=== PATIENT | female | born 1970 | race African-American/Black ===

== ENCOUNTER 2022-12-14 15:57 | Emergency (ER) | payer OTHER ==
--- OUTSIDE RECORDS SUMMARY | 2022-12-14 16:03 | XMS REPORT | Continuity of Care Document ---
:1970 [facility] [address] [facility] [address] [place] [place] [address] Care Team Providers Name Role Phone Samantha Beasley Primary Care Physician [phone] Javon Bundy MD, Luis D Attending Clinician [phone] EDITH Attending Clinician Unavailable DR ROMANA HARRIS Attending Clinician Unavailable EDITH Admitting Clinician Unavailable DR ROMANA HARRIS Admitting Clinician Unavailable Payers Payer Name Policy Type Policy Number Effective Date [facility]piration Date [facility] [id number] 2017 COMMUNITY PLAN - 00:00:00 [facility] (MEDICAID HMO) Problems This patient has no known problems. Allergies, Adverse Reactions, Alerts This patient has no known allergies or adverse reactions. Social History Social Habit Start Date Stop Date Quantity Comments Source Gender identity [facility] Sexual orientation [facility] Exposure to SARS-CoV-2 2021-12-29 2022-01-08 Not sure [facility] (event) 00:00:00 18:35:00 Sex Assigned At [birth year] [facility] 00:00:00 00:00:00 Medications Ordered Filled Start Stop Current Ordering Indication Dosage Frequency Signature Comments Components Source Medication Medication Date Date Medication? Clinician (SIG) Name Name BENZTROPINE No MESYLATE 1 9-26 MG TABS 00:00: 00 TAKE ONE No (1) TABLET 8-29 BY MOUTH 00:00: EVERY 00 EVENING BENZTROPINE No 1 MESYLATE 1 8-17 MG TABS 00:00: 00 DIVALPROEX No 500 SODIUM ER 8-17 500 MG TB24 00:00: 00 WATER FOR 2021- No 1 dose, Kait is INJECTION, 01-09 Starting Heal th STERILE 00:44: 03:38 on Mon INJECTION 28 :03 01/09/22 at SOLUTION 0044 Pyxis Override cefTRIAXone 2021- No 500mg 500 mg [facility] (ROCEPHIN) 01-09 (8.01 Health injection 00:34: 01:10 mg/kg), 500 mg 00 :00 Intramuscu lar, ONCE, 1 dose, On Sun01/09/22 at 0034, STAT doxycycline 2021- No [id number] 100mg Q.5D Take 1 [facility] monohydrate 01-09 capsule by [facility] (MONODOX) 00:00: 23:59 mouth 2 100 mg 00 :00 times capsule daily for 10 days metroNIDAZO 2021- No [id number] 500mg Q.5D Take 1 [facility] (FLAGYL) 01-09 tablet by He alth 500 mg 00:00: 23:59 mouth 2 tablet 00 :00 times daily for 10 days doxycycline 2021- No Dysuria 100mg Q.5D Take 1 [facility] monohydrate 01-09 capsule by [facility] (MONODOX) 00:00: 23:59 mouth 2 100 mg 00 :00 times capsule daily for 10 days metroNIDAZO 2021- No Dysuria 500mg Q.5D Take 1 [facility] (FLAGYL) 01-09 tablet by [facility] 500 mg 00:00: 23:59 mouth 2 tablet 00 :00 times daily for 10 days doxycycline 2021- No Dysuria 100mg Q.5D Take 1 [facility] monohydrate 01-09 capsule [facility] (MONODOX) 00:00: 23:59 mouth 2 100 mg 00 :00 times capsule daily for 10 days metroNIDAZO 2021- No Dysuria 500mg Q.5D Take 1 [facility] (FLAGYL) 6-13 06-23 tablet by [facility] 500 mg 00:00: 23:59 mouth 2 tablet 00 :00 times daily for 10 days doxycycline 2021- No Dysuria 100mg Q.5D Take 1 [facility] monohydrate 01-09 capsule by [facility] (MONODOX) 00:00: 23:59 mouth 2 100 mg 00 :00 times capsule daily for 10 days metroNIDAZO 2021- No Dysuria 500mg Q.5D Take 1 [facility] (FLAGYL) 01-09 tablet by [facility] 500 mg 00:00: 23:59 mouth 2 tablet 00 :00 times daily for 10 days doxycycline 2021- No Dysuria 100mg Q.5D Take 1 [facility] monohydrate 01-09 capsule by [facility] (MONODOX) 00:00: 23:59 mouth 2 100 mg 00 :00 times capsule daily for 10 days metroNIDAZO 2021- No Dysuria 500mg Q.5D Take 1 [facility] (FLAGYL) 01-09 tablet by [facility] 500 mg 00:00: 23:59 mouth 2 tablet 00 :00 times daily for 10 days Vital Signs Vital Name Observation Time Observation Value Comments Source Systolic blood pressure 2022-01-09 01:20:00 100 mm[Hg] [facility] Diastolic blood pressure 2022-01-09 01:20:00 59 mm[Hg] [facility] Heart rate 2022-01-09 01:20:00 84 /min [facility] Body temperature 2022-01-09 01:20:00 36.67 Ameena Kait is [facility] Respiratory rate 2022-01-09 01:20:00 18 /min Kait is [facility] Oxygen saturation in 2022-01-09 01:20:00 97 /min [facility] Arterial blood by Pulse oximetry BMI 2022-01-08 18:31:00 21.54 kg/m2 [facility] Body height 2022-01-08 18:31:00 170.2 cm [facility] Body weight 2022-01-08 18:31:00 62.37 kg [facility] Systolic blood pressure 2022-01-09 01:20:00 100 mm[Hg] [facility] Diastolic blood pressure 2022-01-09 01:20:00 59 mm[Hg] [facility] Heart rate 2022-01-09 01:20:00 84 /min [facility] Body temperature 2022-01-09 01:20:00 36.67 Ameena [facility] Respiratory rate 2022-01-09 01:20:00 18 /min [facility] Oxygen saturation in 2022-01-09 01:20:00 97 /min [facility] Arterial blood by Pulse oximetry BMI 2022-01-08 18:31:00 21.54 kg/m2 [facility] Body height 2022-01-08 18:31:00 170.2 cm [facility] Body weight 2022-01-08 18:31:00 62.37 kg [facility] Systolic blood pressure 2022-01-09 01:20:00 100 mm[Hg] [facility] Diastolic blood pressure 2022-01-09 01:20:00 59 mm[Hg] [facility] Heart rate 2022-01-09 01:20:00 84 /min [facility] Body temperature 2022-01-09 01:20:00 36.67 Ameena [facility] Respiratory rate 2022-01-09 01:20:00 18 /min [facility] Oxygen saturation in 2022-01-09 01:20:00 97 /min [facility] Arterial blood by Pulse oximetry BMI 2022-01-08 18:31:00 21.54 kg/m2 [facility] Body height 2022-01-08 18:31:00 170.2 cm [facility] Body weight 2022-01-08 18:31:00 62.37 kg [facility] BP Systolic 2022-03-08 15:27:00 102 mm[Hg] BP Diastolic 2022-03-08 15:27:00 64 mm[Hg] Weight Measured 2022-03-08 15:27:00 154.00 pounds Height Measured 2022-03-08 15:27:00 68.00 inches Body Temperature 2022-03-08 15:27:00 97.40 degrees Heart Rate 2022-03-08 15:27:00 90.00 /min Respiratory Rate 2022-03-08 15:27:00 Systolic blood pressure 2022-01-09 01:20:00 100 mm[Hg] [facility] Diastolic blood pressure 2022-01-09 01:20:00 59 mm[Hg] [facility] Heart rate 2022-01-09 01:20:00 84 /min [facility] Body temperature 2022-01-09 01:20:00 36.67 Ameena [facility] Respiratory rate 2022-01-09 01:20:00 18 /min [facility] Oxygen saturation in 2022-01-09 01:20:00 97 /min [facility] Arterial blood by Pulse oximetry Body height 2022-01-08 18:31:00 170.2 cm [facility] Body weight 2022-01-08 18:31:00 62.37 kg [facility] BMI 2022-01-08 18:31:00 21.54 kg/m2 [facility] Procedures Procedure Date / Time Performed Performing Clinician Sour e URINALYSIS 2022-01-08 19:31:00 [facility] 2022-01-08 19:31:00 [facility] 2022-01-08 19:31:00 [facility] 2022-01-08 19:31:00 Chrissie Escobedo [facility] h CBC 2022-01-08 19:30:00 Chrissie Escobedo [facility] BASIC METABOLIC PANEL 2022-01-08 19:30:00 Chrissie Escobedo [facility] CBC/DIFF 2022-01-08 19:30:00 Chrissie Escobedo [facility] h HIV AG/AB COMBO 2022-01-08 19:30:00 Chrissie Escobedo [facility] h DIAGNOSTIC/SYMPTOMATIC LIPASE 2022-01-08 19:30:00 Chrissie Escobedo [facility] h LIVER PROFILE 2022-01-08 19:30:00 [facility] 2022-01-08 19:30:00 Chrissie Escobedo [facility] h CBC/DIFF 2022-01-08 19:30:00 [facility] BASIC METABOLIC PANEL 2022-01-08 19:30:00 Chrissie Escobedo [facility] HIV AG/AB COMBO 2022-01-08 19:30:00 [facility] DI[facility]NOSTIC/SYMPTOMATIC LIPASE 2022-01-08 19:30:00 [facility] L[facility] 2022-01-08 19:30:00 Chrissie Escobedo [facility] Plan of Care Planned Activity Planned Date Details Comments Source Future Scheduled Test 2022-04-29 00:00:00 IMM Influenza [facility] Seasonal (>/= 19 yrs) [code = IMM Influenza Seasonal (>/= 19 yrs)] Future Scheduled Test 2022-04-29 00:00:00 IMM Influenza [facility] Seasonal (>/= 19 yrs) [code = IMM Influenza Seasonal (>/= 19 yrs)] Future Scheduled Test 2022-04-29 00:00:00 IMM Influenza [facility] Seasonal (>/= 19 yrs) [code = IMM Influenza Seasonal (>/= 19 yrs)] Future Scheduled Test 2022-04-29 00:00:00 IMM Influenza [facility] Seasonal (>/= 19 yrs) [code = IMM Influenza Seasonal (>/= 19 yrs)] Future Scheduled Test 2020 00:00:00 Screening for [facility] malignant neoplasm of colon (procedure) [code = 971557671] Future Scheduled Test 2020 00:00:00 Screening for [facility] malignant neoplasm of colon (procedure) [code = 499263160] Future Scheduled Test 2020 00:00:00 Screening for [facility] malignant neoplasm of colon (procedure) [code = 884793497] Future Scheduled Test 2020 00:00:00 Screening for [facility] malignant neoplasm of colon (procedure) [code = 245099772] Future Scheduled Test 2010 00:00:00 Breast Cancer Scrn [facility] (Yearly) [code = Breast Cancer Scrn (Yearly)] Future Scheduled Test 2010 00:00:00 Breast Cancer Scrn [facility] (Yearly) [code = Breast Cancer Scrn (Yearly)] Future Scheduled Test 2010 00:00:00 Breast Cancer Scrn [facility] (Yearly) [code = Breast Cancer Scrn (Yearly)] Future Scheduled Test 2010 00:00:00 Breast Cancer Scrn [facility] (Yearly) [code = Breast Cancer Scrn (Yearly)] Future Scheduled Test 2000 00:00:00 Screening for [facility] malignant neoplasm of cervix (procedure) [code = 754467742] Future Scheduled Test 2000 00:00:00 Screening for [facility] malignant neoplasm of cervix (procedure) [code = 677611802] Future Scheduled Test 2000 00:00:00 Screening for [facility] malignant neoplasm of cervix (procedure) [code = 033544119] Future Scheduled Test 2000 00:00:00 Screening for [facility] malignant neoplasm of cervix (procedure) [code = 567531367] Future Scheduled Test 2000 00:00:00 Screening for [facility] malignant neoplasm of cervix (procedure) [code = 180386040] Future Scheduled Test 2000 00:00:00 Screening for [facility] malignant neoplasm of cervix (procedure) [code = 517770362] Future Scheduled Test 2000 00:00:00 Screening for [facility] malignant neoplasm of cervix (procedure) [code = 926455620] Future Scheduled Test 2000 00:00:00 Screening for [facility] malignant neoplasm of cervix (procedure) [code = 496952069] Future Scheduled Test 1971-06-22 00:00:00 COVID-19 Vaccine (#1) [facility] [code = COVID-19 Vaccine (#1)] Future Scheduled Test 1971-06-22 00:00:00 COVID-19 Vaccine (#1) [facility] [code = COVID-19 Vaccine (#1)] Future Scheduled Test 1971-06-22 00:00:00 COVID-19 Vaccine (#1) [facility] [code = COVID-19 Vaccine (#1)] Future Scheduled Test 1971-06-22 00:00:00 COVID-19 Vaccine (#1) [facility] [code = COVID-19 Vaccine (#1)] Future Scheduled Test 1970 00:00:00 Fluoride Varnish [facility] [code = Fluoride Varnish] Goal Plan of Care Note [code = 08885-6] Goal Plan of Care Note [code = 28035-1] Goal Plan of Care Note [code = 09897-6] Goal Plan of Care Note [code = 52758-3] Goal Plan of Care Note [code = 15778-5] Goal Plan of Care Note [code = 71436-0] Goal Plan of Care Note [code = 66735-7] Goal Plan of Care Note [code = 46882-9] Goal Plan of Care Note [code = 92777-4] Goal Plan of Care Note [code = 58083-4] Goal Plan of Care Note [code = 63292-3] Goal Plan of Care Note [code = 06168-3] Encounters Start End Encounter Admission Attending Care Care Encounter Source Date/Time Date/Time Type Type Clinicians Facility Department ID 2022-06-27 Outpatient [facility] [id number] [place] 12:00:38 [facility] idalia [address] [place] 2022-06-16 Inpatient TEXANA TEXANA [place] 10:25:[id number] [place] [address] 2022-03-15 Inpatient TEXANA TEXANA [place] 07:49:[id number] [place] [address] 2022-02-03 Inpatient TEXANA TEXANA [place] 12:09:[id number] [place] [address] 2022-02-01 Inpatient TEXANA TEXANA [place] 16:28:[address] [place] [address] 2022-01-31 Inpatient TEXANA TEXANA [place] 16:35:[address] [place] [address] 2022-01-25 Inpatient TEXANA TEXANA [place] 09:34:[id number] [place] [address] 2022-01-24 Inpatient TEXANA TEXANA [place] 17:21:[id number] [place] [address] 2022-08-31 2022-08-31 Outpatient SFA SFA [id number] [place] 14:15:54 14:15:54 [id number] [facility] 2022-08-08 2022-08-08 Outpatient SFA SFA [id number] [place] 13:33:27 13:33:27 [address]24 [facility] 2022-08-01 2022-08-01 Outpatient SFA SFA [id number] [place] 14:00:22 14:00:22 [id number] [facility] 2022-07-12 2022-07-12 Outpatient SFA SFA [id number] [place] 14:28:01 14:28:01 [id number] [facility] 2022-05-22 2022-05-22 Outpatient SFA SFA [id number] [place] 14:17:41 14:17:41 [address] [facility] 2022-03-20 2022-03-20 Outpatient [id number] 00:00:00 00:00:00 Visit [id number] 2022-03-08 2022-03-08 Outpatient [id number] 00:00:00 00:00:00 Visit [id number] 2022-01-08 2022-01-09 Emergency OLESYA Alejandro [id number] [place] 22:31:00 01:30:[address] [facility] [id number] [id number] [id number] 2022-01-09 Emergency Javon [facility] [id number] [place] 22:31:00 01:30:00 Luis Randhawa [facility] 2022-01-08 2022-01-08 Emergency 1 [facility] [id number] [place] 18:31:00 18:31:00 [facility] 2021-07-06 2021-07-06 Outpatient [facility] [address] [place] 04:35:00 04:35:00 _ANN [facility] 2018-03-04 2018-03-04 Emergency E [facility] [id number] 238 [facility] 19:43:00 21:10:00 [facility] Results Test Description Test Time Test Comments Results Result Comments Source CT/NG, NAAT, URINE 2022-03-10 10:01:57 Test Item Value Reference Range Interpretation Comme nts GONORRHEA, NAAT NEGATIVE NEGATIVE IMPORTA NT NOTICE: SEE ANNOUNCEMENT AT (test code = [email or web address].[employer] ([place])rineKit Note: 96329) Assay methodolo gy is nucleic acid amplification by transcriptio n mediated amplification (TMA) utilizing the A ptima Combo 2 Assay. CHLAMYDIA, NAAT NEGATIVE NEGATIVE IMPORTA NT NOTICE: SEE ANNOUNCEMENT AT (test code = [email or web address]://www.[employer]/RocheCobasUrineKit Note: 74395) Assay methodolo gy is nucleic acid amplification by transcriptio n mediated amplification (TMA) utilizing the A ptima Combo 2 Assay. GC AND CHLAMYDIA, AMPLIFIED, [id number] 00:00:00 Test Item Value Reference Range Interpretation Comments GONORRHEA, NAAT (test code = 90064) NEGATIVE CHLAMYDIA, NAAT (test code = 42227) NEGATIVE GC AND CHLAMYDIA, AMPLIFIED, [id number] 00:00:00 Test Item Value Reference Range Interpretation Comments GONORRHEA, NAAT (test code = 80543) NEGATIVE CHLAMYDIA, NAAT (test code = 94372) NEGATIVE HEMOGLOBIN [id number] 07:55:22 Test Item Value Reference Range Interpretation Comments HEMOGLOBIN A1c (test code = 32562) 5.2 % 4.2-5.6 CBC W/AUTO DIFF WITH [id number] 06:43:03 Test Item Value Reference Range Interpretation Comments WBC (test code = 5.4 K/UL 3.5-11.0 1001) RBC (test code = 4.02 M/UL 3.80-5.40 1002) HEMOGLOBIN (test code 11.1 G/DL 11.5-15.5 L = 1003) HEMATOCRIT (test code 34.9 % 34.0-45.0 = 1004) MCV (test code = 86.8 fL 80.0-99.0 1005) MCH (test code = 27.6 PG 25.0-33.0 1006) MCHC (test code = 31.8 G/DL 31.0-36.0 1007) RDW (test code = 14.5 % 11.5-15.0 1038) NEUTROPHILS (test 50.2 % code = 1008) LYMPHOCYTES (test 35.1 % code = 1010) MONOCYTES (test code 7.1 % = 1011) EOSINOPHILS (test 6.7 % code = 1012) BASOPHILS (test code 0.7 % = 1013) IMMATURE GRANULOCYTES 0.2 % (test code = 1036) NUCLEATED RBCS (test 0.0 /100 WBC'S See_Comment [Aut omated code = 1065) message] The sy stem which generated this result transmitted reference range : 0.0. The refere nce range was not u sed to interpret th is result as normal/abnormal . PLATELET COUNT (test 228 K/UL 130-400 code = 1015) ABSOLUTE NEUTROPHILS 2.68 K/UL 1.50-7.50 (test code = 1066) ABSOLUTE LYMPHOCYTES 1.88 K/UL 1.00-4.00 (test code = 1067) ABSOLUTE MONOCYTES 0.38 K/UL 0.20-1.00 (test code = 1068) ABSOLUTE EOSINOPHILS 0.36 K/UL 0.00-0.50 (test code = 1040) ABSOLUTE BASOPHILS 0.04 K/UL 0.00-0.20 (test code = 1069) ABS IMMATURE 0.01 K/UL 0.00-0.10 GRANULOCYTES (test code = 1020) ABS NUCLEATED RBCS 0.00 K/UL 0.00-0.11 (test code = 01278) HIV 1/2 4TH GEN, RFLX [id number] 06:37:05 Test Item Value Reference Range Interpretation Comments HIV 1/2 4TH GEN, RFLX CONF (test NON-REACTIVE NON-REACTIVE code = 3514) HEPATITIS PANEL, [id number] 06:37:05 Test Item Value Reference Range Interpretation Comments HEPATITIS A IgM (test NON-REACTIVE NON-REACTIVE code = 12241) HEPATITIS B CORE IgM NON-REACTIVE NON-REACTIVE (test code = 4644) HEPATITIS B SURF AG NON-REACTIVE NON-REACTIVE (test code = 2739) HEPATITIS C ANTIBODY NON-REACTIVE NON-REACTIVE (test code = 4675) INTERPRETATION (NOTE) Hepatitis A HEPATITIS A: (test code sero logy shows no = 2552) evidence of acu te hepatitis A. INTERPRETATION (NOTE) Hepatitis B HEPATITIS B: (test code sero logy shows no = 01400) evidence of acu te hepatitis B and no indication of exposure to hepatitis B vir us in the previous cande eight months. INTERPRETATION (NOTE) Hepatitis C HEPATITIS C: (test code sero logy shows no = 76509) evidence of exposure to hepatitisC viru s at this time. I t can take up to 12 months after exposure tothe hepatitis C vir us for antibodies to become detectab le in the blood i n certain patient s. COMPREHENSIVE METABOLIC [id number] 06:24:00 Test Item Value Reference Range Interpretation Comments GLUCOSE (test code = 101 MG/DL 70-99 H 2216) BUN (test code = 22 MG/DL 6-20 H 2207) CREATININE (test 0.85 MG/DL 0.60-1.30 code = 2214) eGFR (2020 CKD-EPI) 83 ML/MIN/1.73 >60 (test code = 83255) CALC BUN/CREAT (test 26 RATIO 6-28 code = 223) SODIUM (test code = 138 MEQ/L 080-954 5945) POTASSIUM (test code 4.7 MEQ/L 3.5-5.4 = 2227) CHLORIDE (test code 104 MEQ/L 95-107 = 2214) CARBON DIOXIDE (test 20 MEQ/L 19-31 code = 2205) CALCIUM (test code = 11.5 MG/DL 8.5-10.5 H 2208) PROTEIN, TOTAL (test 7.4 G/DL 6.1-8.3 code = 2228) ALBUMIN (test code = 4.3 G/DL 3.5-5.2 2200) CALC GLOBULIN (test 3.1 G/DL 1.9-3.7 code = 2239) CALC A/G RATIO (test 1.4 RATIO 1.0-2.6 code = 2233) BILIRUBIN, TOTAL <0.2 MG/DL See_Comment [Automated message] (test code = 2206) The syste m which generated this result transmit zachariah reference range : <=1.2. The refe rence range was not u sed to interpret th is result as normal/abnormal . ALKALINE PHOSPHATASE 43 U/L 40-130 (test code = 2203) AST (test code = 13 U/L 9-40 2217) ALT (test code = 6 U/L 5-40 2218) LIPID [id number] 06:24:00 Test Item Value Reference Range Interpretation Comments CHOLESTEROL (test 187 MG/DL <200 code = 2210) TRIGLYCERIDES (test 109 MG/DL <150 code = 2232) HDL CHOLESTEROL (test 78 MG/DL >39 code = 2220) CALC LDL CHOL (test 88 MG/DL <100 NOTE: C ALCULATED LDL code = 2237) IS BASED ON AMBREEN-DUKES METHOD WHICHINCLUDES ADJUSTABLE TRIGLYCERIDE:VL DL CHOLESTEROL RAT IO.THIS FACTOR VARIES B Y MEASURED TRIGLY CERIDE AND NON-HDLCHOL ESTEROL CONCENTRATIONS WITH INCREASED CALCU LATED LDL SEENIN HIGH ER TRIGLYCERIDE OR LOWER NON-HDL SPECIME NS. FOR MOREINFORMATION , SEE CLIENT ANNOUNCE MENT AT [email or web address] [email or web address] RATIO LDL/HDL 1.13 RATIO <3.22 (test code = 2238) [id number] 04:53:39 Test Item Value Reference Range Interpretation Comments RPR RESULT (test NON-REACTIVE NON-REACTIVE code = 3501) RPR TITER (test NOT INDIC. NOT INDIC. UNLESS OTHE RWISE code = 3500) TITER INDICATED, ALL TESTING PERFORMED [facility] PATHOLOGY [facility] [employer], [facility]. [address] [place] [address] [address] LABORATORY DIRE CTOR: MORENA LAL M.D. CLIA NUMBER [id number] [place] [id number] COMPREHENSIVE METABOLIC [id number] 00:00:00 Test Item Value Reference Range Interpretation Comments GLUCOSE (test code = 2217) 101 MG/DL BUN (test code = 2208) 22 MG/DL CREATININE (test code = 2214) 0.85 MG/DL eGFR (2020 CKD-EPI) (test code 83 ML/MIN/1.73 = 81646) CALC BUN/CREAT (test code = 26 RATIO 2234) SODIUM (test code = 2231) 138 MEQ/L POTASSIUM (test code = 2228) 4.7 MEQ/L CHLORIDE (test code = 2215) 104 MEQ/L CARBON DIOXIDE (test code = 20 MEQ/L 2205) CALCIUM (test code = 2209) 11.5 MG/DL PROTEIN, TOTAL (test code = 7.4 G/DL 2228) ALBUMIN (test code = 2201) 4.3 G/DL CALC GLOBULIN (test code = 3.1 G/DL 2240) CALC A/G RATIO (test code = 1.4 RATIO 4) BILIRUBIN, TOTAL (test code = <0.2 MG/DL 2206) ALKALINE PHOSPHATASE (test 43 U/L code = 2204) AST (test code = 2218) 13 U/L ALT (test code = 2219) 6 U/L COMPREHENSIVE METABOLIC [id number] 00:00:00 Test Item Value Reference Range Interpretation Comments GLUCOSE (test code = 2217) 101 MG/DL BUN (test code = 2208) 22 MG/DL CREATININE (test code = 2214) 0.85 MG/DL eGFR (2020 CKD-EPI) (test code 83 ML/MIN/1.73 = 15851) CALC BUN/CREAT (test code = 26 RATIO 2235) SODIUM (test code = 2231) 138 MEQ/L POTASSIUM (test code = 2228) 4.7 MEQ/L CHLORIDE (test code = 2215) 104 MEQ/L CARBON DIOXIDE (test code = 20 MEQ/L 2205) CALCIUM (test code = 2209) 11.5 MG/DL PROTEIN, TOTAL (test code = 7.4 G/DL 2228) ALBUMIN (test code = 2201) 4.3 G/DL CALC GLOBULIN (test code = 3.1 G/DL 2239) CALC A/G RATIO (test code = 1.4 RATIO 2234) BILIRUBIN, TOTAL (test code = <0.2 MG/DL 2206) ALKALINE PHOSPHATASE (test 43 U/L code = 2204) AST (test code = 2218) 13 U/L ALT (test code = 2219) 6 U/L LIPID [id number] 00:00:00 Test Item Value Reference Range Interpretation Comments CHOLESTEROL (test code = 2210) 187 MG/DL TRIGLYCERIDES (test code = 2232) 109 MG/DL HDL CHOLESTEROL (test code = 2220) 78 MG/DL CALC LDL CHOL (test code = 2237) 88 MG/DL RISK RATIO LDL/HDL (test code = 1.13 RATIO 2238) LIPID [id number] 00:00:00 Test Item Value Reference Range Interpretation Comments CHOLESTEROL (test code = 2210) 187 MG/DL TRIGLYCERIDES (test code = 2232) 109 MG/DL HDL CHOLESTEROL (test code = 2220) 78 MG/DL CALC LDL CHOL (test code = 2237) 88 MG/DL RISK RATIO LDL/HDL (test code = 1.13 RATIO 2238) HEMOGLOBIN [id number] 00:00:00 Test Item Value Reference Range Interpretation Comments HEMOGLOBIN A1c (test code = 62292) 5.2 % HEMOGLOBIN [id number] 00:00:00 Test Item Value Reference Range Interpretation Comments HEMOGLOBIN A1c (test code = 13009) 5.2 % HEMOGLOBIN [id number] 00:00:00 Test Item Value Reference Range Interpretation Comments HEMOGLOBIN A1c (test code = 58780) 5.2 % CBC W/AUTO [id number] 00:00:00 Test Item Value Reference Range Interpretation Comments WBC (test code = 1001) 5.4 K/UL RBC (test code = 1002) 4.02 M/UL HEMOGLOBIN (test code = 1003) 11.1 G/DL HEMATOCRIT (test code = 1004) 34.9 % MCV (test code = 1005) 86.8 fL MCH (test code = 1006) 27.6 PG MCHC (test code = 1007) 31.8 G/DL RDW (test code = 1038) 14.5 % NEUTROPHILS (test code = 1008) 50.2 % LYMPHOCYTES (test code = 1010) 35.1 % MONOCYTES (test code = 1011) 7.1 % EOSINOPHILS (test code = 1012) 6.7 % BASOPHILS (test code = 1013) 0.7 % IMMATURE GRANULOCYTES (test 0.2 % code = 1036) NUCLEATED RBCS (test code = 0.0 /100WBC'S 1065) PLATELET COUNT (test code = 228 K/UL 1015) ABSOLUTE NEUTROPHILS (test code 2.68 K/UL = 1066) ABSOLUTE LYMPHOCYTES (test code 1.88 K/UL = 1067) ABSOLUTE MONOCYTES (test code = 0.38 K/UL 1068) ABSOLUTE EOSINOPHILS (test code 0.36 K/UL = 1040) ABSOLUTE BASOPHILS (test code = 0.04 K/UL 1069) ABS IMMATURE GRANULOCYTES (test 0.01 K/UL code = 1020) ABS NUCLEATED RBCS (test code = 0.00 K/UL 13996) CBC W/AUTO [id number] 00:00:00 Test Item Value Reference Range Interpretation Comments WBC (test code = 1001) 5.4 K/UL RBC (test code = 1002) 4.02 M/UL HEMOGLOBIN (test code = 1003) 11.1 G/DL HEMATOCRIT (test code = 1004) 34.9 % MCV (test code = 1005) 86.8 fL MCH (test code = 1006) 27.6 PG MCHC (test code = 1007) 31.8 G/DL RDW (test code = 1038) 14.5 % NEUTROPHILS (test code = 1008) 50.2 % LYMPHOCYTES (test code = 1010) 35.1 % MONOCYTES (test code = 1011) 7.1 % EOSINOPHILS (test code = 1012) 6.7 % BASOPHILS (test code = 1013) 0.7 % IMMATURE GRANULOCYTES (test 0.2 % code = 1036) NUCLEATED RBCS (test code = 0.0 /100WBC'S 1065) PLATELET COUNT (test code = 228 K/UL 1015) ABSOLUTE NEUTROPHILS (test code 2.68 K/UL = 1066) ABSOLUTE LYMPHOCYTES (test code 1.88 K/UL = 1067) ABSOLUTE MONOCYTES (test code = 0.38 K/UL 1068) ABSOLUTE EOSINOPHILS (test code 0.36 K/UL = 1040) ABSOLUTE BASOPHILS (test code = 0.04 K/UL 1069) ABS IMMATURE GRANULOCYTES (test 0.01 K/UL code = 1020) ABS NUCLEATED RBCS (test code = 0.00 K/UL 02279) CBC W/AUTO [id number] 00:00:00 Test Item Value Reference Range Interpretation Comments WBC (test code = 1001) 5.4 K/UL RBC (test code = 1002) 4.02 M/UL HEMOGLOBIN (test code = 1003) 11.1 G/DL HEMATOCRIT (test code = 1004) 34.9 % MCV (test code = 1005) 86.8 fL MCH (test code = 1006) 27.6 PG MCHC (test code = 1007) 31.8 G/DL RDW (test code = 1038) 14.5 % NEUTROPHILS (test code = 1008) 50.2 % LYMPHOCYTES (test code = 1010) 35.1 % MONOCYTES (test code = 1011) 7.1 % EOSINOPHILS (test code = 1012) 6.7 % BASOPHILS (test code = 1013) 0.7 % IMMATURE GRANULOCYTES (test 0.2 % code = 1036) NUCLEATED RBCS (test code = 0.0 /100WBC'S 1065) PLATELET COUNT (test code = 228 K/UL 1015) ABSOLUTE NEUTROPHILS (test code 2.68 K/UL = 1066) ABSOLUTE LYMPHOCYTES (test code 1.88 K/UL = 1067) ABSOLUTE MONOCYTES (test code = 0.38 K/UL 1068) ABSOLUTE EOSINOPHILS (test code 0.36 K/UL = 1040) ABSOLUTE BASOPHILS (test code = 0.04 K/UL 1069) ABS IMMATURE GRANULOCYTES (test 0.01 K/UL code = 1020) ABS NUCLEATED RBCS (test code = 0.00 K/UL 17013) HIV AB/AG COMBO RFLX [id number] 00:00:00 Test Item Value Reference Range Interpretation Comments HIV 1/2 4TH GEN, RFLX CONF (test NON-REACTIVE code = 3514) HIV AB/AG COMBO RFLX [id number] 00:00:00 Test Item Value Reference Range Interpretation Comments HIV 1/2 4TH GEN, RFLX CONF (test NON-REACTIVE code = 3514) ACUTE HEPATITIS [id number] 00:00:00 Test Item Value Reference Range Interpretation Comments HEPATITIS A IgM (test code = NON-REACTIVE 04540) HEPATITIS B CORE IgM (test code NON-REACTIVE = 4644) HEPATITIS B SURF AG (test code = NON-REACTIVE 2739) HEPATITIS C ANTIBODY (test code NON-REACTIVE = 4675) INTERPRETATION HEPATITIS A: (NOTE) (test code = 2552) INTERPRETATION HEPATITIS B: (NOTE) (test code = 41920) INTERPRETATION HEPATITIS C: (NOTE) (test code = 98003) ACUTE HEPATITIS [id number] 00:00:00 Test Item Value Reference Range Interpretation Comments HEPATITIS A IgM (test code = NON-REACTIVE 07708) HEPATITIS B CORE IgM (test code NON-REACTIVE = 4644) HEPATITIS B SURF AG (test code = NON-REACTIVE 2739) HEPATITIS C ANTIBODY (test code NON-REACTIVE = 4675) INTERPRETATION HEPATITIS A: (NOTE) (test code = 2552) INTERPRETATION HEPATITIS B: (NOTE) (test code = 24019) INTERPRETATION HEPATITIS C: (NOTE) (test code = 56945) [id number] 00:00:00 Test Item Value Reference Range Interpretation Comments RPR RESULT (test code = NON-REACTIVE 3501) RPR TITER (test code = 3500) NOT INDIC. TITER [id number] 00:00:00 Test Item Value Reference Range Interpretation Comments RPR RESULT (test code = NON-REACTIVE 3501) RPR TITER (test code = 3500) NOT INDIC. TITER [id number] 00:00:00 Test Item Value Reference Range Interpretation Comments RPR RESULT (test code = NON-REACTIVE 3501) RPR TITER (test code = 3500) NOT INDIC. TITER HIV 1+2 Ab+HIV1 p24 Ag SerPl Ql [id number] 20:29:29 Test Item Value Reference Range Interpretation Comments HIV 1+2 Ab+HIV1 p24 Ag SerPl Ql IA NEGATIVE Negative (test code = 76175-2) HHSDRUGS OF [id number] 20:57:00 Test Item Value Reference Range Interpretation Comments DRUG SCRN (test code URINE DRUG SCREEN = HDOA) This is an unconfirmed screening result and should not be used for non-medical purposes CANNABINOD (test code Negative NEGATIVE = 88C) AMPHETAMINE (test Negative NEGATIVE code = 84A) BENZODIAZP (test code Negative NEGATIVE = 86A) BARBITURAT (test code Negative NEGATIVE = 85A) OPIATES (test code = Negative NEGATIVE 92B) COCAINE (test code = POSITIVE NEGATIVE A 87A) PHENCYCLID (test code Negative NEGATIVE = 66A) METHADONE (test code Negative NEGATIVE = 64A) DOAH (test code = DOAH) *URINE DRUG SCREEN Cut-off values are as follows: Cannabinoids 50 ng/mL Cocaine 300 ng/mL Amphetamines 1000 ng/mL Phencyclidine 25 ng/mL Benzodiazepines 200 ng.mL Methadone 300 ng/mL Barbiturates 200 ng/mL Opiates 2000 ng/mL CARDIAC [id number] 20:56:00 Test Item Value Reference Range Interpretation Comments TROPONIN I (test code = A84) 0.016 ng/mL 0.000-0.045 CKMB (test code = A49) 4.6 ng/mL <=3.6 HH CPK (test code = 32A) 150 IU/L 26-192 URINALYSIS WITH [id number] 20:51:00 Test Item Value Reference Range Interpretation Comments COLOR (test code = COLU) YELLOW YELLOW CLARITY (test code = CLA) SLT HAZY CLEAR A GLUCOSE UR (test code = UA GLUCOSE) NEGATIVE NEGATIVE BILI UR (test code = BILE) NEGATIVE NEGATIVE KETONES UR (test code = VLADIMIR) NEGATIVE NEGATIVE SP GRAVITY (test code = SPGR) 1.029 1.005-1.030 PH UR (test code = PH) 5.5 4.5-8.0 PROTEIN UR (test code = PU) NEGATIVE NEGATIVE UROBIL UR (test code = UROQ) 0.2 EU/dL 0.2-1.0 NITRITE UR (test code = NITRITE) NEGATIVE NEGATIVE BLOOD UR (test code = UA BLOOD) NEGATIVE NEGATIVE LEUK ES UR (test code = LEUK) 2+ NEGATIVE A WBC UR (test code = UWBC) 8 /HPF 0-5 H RBC UR (test code = URBC) 0 /HPF 0-2 EPITH UR (test code = UEPC) FEW /LPF FEW BACTERIA UR (test code = UBACT) NONE /HPF NONE CAST UR (test code = CAST) /LPF NONE CRYSTAL UR (test code = CRYU) / LPF NONE MUCUS UR (test code = MUC) / HPF NONE AMORPH UR (test code = VITO) FEW / HPF NONE A TRICH UR (test code = UTRICH) /HPF NONE YEAST UR (test code = UY) /HPF NONE SPERM UR (test code = USPERM) /HPF NONE URINE [id number] 20:46:00 Test Item Value Reference Range Interpretation Comments PREG UR (test code = PGU) NEGATIVE NEGATIVE [id number] 20:42:00 Test Item Value Reference Range Interpretation Comments ACETAMINPH (test code = 94M) <2.0 ug/mL 10.0-30.0 L ALCOHOL BLOOD (ETOH)2018-03-04 20:41:00 Test Item Value Reference Range Interpretation Comments ETOH (test code = HALC) ETHANOL The result is to be used only for medical purposes ALCOHOL (test code = <10 mg/dL <=10 56A) [id number] 20:40:00 Test Item Value Reference Range Interpretation Comments SALICYLATE (test code = 94B) <1.7 mg/dL 2.8-20.0 L [id number] 20:39:00 Test Item Value Reference Range Interpretation Comments MAGNESIUM (test code = 48A) 1.7 mg/dL 1.8-2.4 L BASIC METABOLIC [id number] 20:39:00 Test Item Value Reference Range Interpretation Comments GLUCOSE (test code = 06D) 83 mg/dL 75-100 SODIUM (test code = 01A) 141 mmol/L 136-145 POTASSIUM (test code = 01B) 4.8 mmol/L 3.6-5.1 CHLORIDE (test code = 04A) 109 mmol/L 98-107 H CO2 (test code = 02A) 26 mmol/L 22-32 ANION GAP (test code = ANG) 10.8 mmol/L BUN (test code = 05D) 21 mg/dL 7-18 H CREATININE (test code = 03E) 0.6 mg/dL 0.4-1.1 BUN/CREA (test code = BCR) 33 12-20 H CALCIUM (test code = 09D) 10.5 mg/dL 8.3-9.[address] HEAD W/O [id number] 20:34:18Location [id number] CT BRAINHistory: Altered mental statusCOMPARISON: None availableTECHNIQUE : Serial axial CT of the brain obtained without the use ofintravenous contrast in the brain and bone window settings. Coronal andsagittal reconstructions are provided. One or more of the following dose reduction techniques were used: Automatedexposure control, adjustment of the mAs and Kv. According to patient size, useof iterative reconstruction reconstruction technique. DLP 848 mGy-cm.FINDINGS:There is no evidence of acute cerebrovascular injury, mass effect or midlineshift. No evidence of subarachnoid hemorrhage, intracerebral hematoma, orextraaxial fluid collections. Early benign basal ganglia calcifications areseen.Osseous structures are unremarkable. The orbits appear normal. The visibleparanasal sinuses and mastoid air spaces are clear. If symptomatology persists, correlation with MRI may be of further benefit.IMPRESSION:No CT evidence of acute intracranial process.XR CHEST 1 VIEW [id number] 20:23:65N3EJCV OF STUDY: 03/04/2018 7:52 PM REASON FOR EXAM: R41.82: ALTERED MENTAL STATUS, UNSPECIFIEDCOMPARISON: None.FINDINGS: AP view of the chest was obtained. Lungs: Normal lung volume. No mass, or consolidation. Normal pulmonaryvascularity.Pleura: No pleural effusion or pneumothorax.Heart and Mediastinum: Normal cardiomediastinal silhouette and great vessels.Bones: Normal regional skeletal structures.IMPRESSION: 1. No acute cardiopulmonary process.CBC (INCLUDES AUTOMATED DIFFERENTIAL)2018-03-04 20:04:00 Test Item Value Reference Range Interpretation Comments WBC (test code = WBC) 5.7 10\\S\\3/uL 4.5-11.0 RBC (test code = RBC) 4.54 10\\S\\6/uL 4.20-5.60 HGB (test code = HBG) 12.2 g/dL 12.0-15.5 HCT (test code = HCT) 38.9 % 35.0-44.0 MCV (test code = MCV) 85.7 fL 81.0-99.0 MCH (test code = MCH) 26.9 pg 27.0-31.0 L MCHC (test code = MCHC) 31.4 g/dL 32.0-36.0 L RDW (test code = RDW) 14.7 % 11.5-14.5 H PLT (test code = PLT) 300 10\\S\\3/uL 130-400 MPV (test code = MPV) 9.2 fL 9.4-12.4 L NEUTROP # (test code = NE#) 3.4 10\\S\\3/uL 1.6-8.0 LYMPH # (test code = LY#) 1.8 10\\S\\3/uL 1.1-3.5 MONOCYTE # (test code = MO#) 0.3 10\\S\\3/uL 0.0-1.1 EOSINOPH # (test code = EO#) 0.2 10\\S\\3/uL 0.0-0.7 BASOPHIL # (test code = BA#) 0.0 10\\S\\3/uL 0.0-0.3 IG # (test code = IG#) 0.01 10\\S\\3/uL 0.00-0.06 NRBC # (test code = NRBC#) 0.00 10\\S\\3/uL 0.00-0.01 NEUTROPH % (test code = NE%) 59.7 % 35.0-73.0 LYMPH % (test code = LY%) 31.3 % 20.0-55.0 MONO % (test code = MO%) 5.3 % 2.5-10.0 EOSINOPH % (test code = EO%) 2.8 % 0.0-5.0 BASOPHIL % (test code = BA%) 0.7 % 0.0-2.0 IG % (test code = IG%) 0.2 % 0.0-0.8 NRBC% (test code = NRBC%) 0.0 % 0.0-0.2 MANDIFF (test code = MDIFF) NO NO RBC MORPH (test code = RBCMOR) NORMAL Notes Date/Time Note Provider Source 2022-01-09 Formatting of this note might be differe nt from the original. Merary Gunn [facility] 01:29:00-00:00 Pt has been cleared for disc harge and is agreeable for discharge at this time. AAOx4, GCS 15, respirations even/unlabored, skin warm/dry. Patient discharge teaching and instructions provided regarding t System reatment/prescriptions/follo w up with PCP. All questions were answered. Patient verbalized understanding. Learning needs assessed. Patient instructed to return to EC if symptoms return or worsen. All pa tient belongings were presen t with patient on departure. Pt departed with steady gait. Electronically signed by Merary Gunn at 0 01/09/2022 1:31 AM CDT 2022-01-08 Formatting of this note is different from the or iginal. [facility] 23:22:59-00:00 System History Chief Complaint Patient presents with Dysuria pt c/o dysuria x2-3 weeks a nd vaginal dc and itching s/p unprotected sex on mothers day. pt also c/o R flank pain. denies vomiting or fevers. pt very anxious in triage, states staying at [facility] a nd is not allowed to take her psych meds while t here Vaginal Discharge Flank Pain Brenda Vasquez is a 51y.o. female PMH: Bi-polar, Schizophrenia Surg: Denies Social: Denies any alcohol, tobacco, or recreati onal drug use. Presents to the emergency de partment with complaint of dysuria, urinary frequency, and vaginal discharge for 1-2 weeks with no relief of symptoms. Patient endorses having unprotected intercourse approx 2 weeks ago. Patient at pres ent denies any nausea/vomiting, fever/chills, chest pain, shortness of breath, hematuria, melena/hematochezia. Medical History No past medical history documented. Surgical History None Family Medical History None Social History None Review of Systems Constitutional: Negative for chills and fever. HENT: Negative for sore throat. Respiratory: Negative for cough, chest tightness and shortness of breath. Cardiovascular: Negative for chest pain. Gastrointestinal: Negative for abdominal pain, d iarrhea, nausea and vomiting. Genitourinary: Positive for dysuria, frequency and vaginal discharge. Negative for difficulty urinating, hematuria and vaginal bleeding. Skin: Negative for color change and pallor. Neurological: Negative for syncope, weakness, nu mbness and headaches. Psychiatric/Behavioral: Negative for behavioral problems and suicidal ideas. Physical Exam BP 116/74 | Pulse 65 | Temp 97.4 F (36.3 C) | Resp 18 | Ht 5' 7" (1.702 m) | Wt 62.4 kg | SpO2 99% | BMI 21.54 kg/m2 Physical Exam Vitals and nursing note revi ewed. Exam conducted with a chief medical director present (Merary Gunn RN). Constitutional: General: She is not in acute distress. Appearance: Normal appearance. She is not ill-a ppearing or toxic-appearing. HENT: Head: Normocephalic and atraumatic. Eyes: Conjunctiva/sclera: Conjunctivae normal. Pupils: Pupils are equal, round, and reactive t o light. Cardiovascular: Rate and Rhythm: Normal rate and regular rhythm . Pulmonary: Effort: Pulmonary effort is normal. No respirat ory distress. Breath sounds: Normal breath sounds. Abdominal: General: There is no distension. Palpations: Abdomen is soft. Tenderness: There is abdominal tenderness in th e suprapubic area. Genitourinary: Comments: Vaginal vault: mo derate thick white discharge. No bleeding visualized. + CMT Right adnexa: TTP Left adnexa: NTTP Skin: General: Skin is warm and dry. Neurological: General: No focal deficit present. Mental Status: She is alert and oriented to person, place, and time. Mental status is at baseline. Psychiatric: Mood and Affect: Mood normal. Behavior: Behavior normal. Thought Content: Thought content normal. Judgment: Judgment normal. Procedures Procedures ED Course MDM Number of Diagnoses or Management Options Dysuria Diagnosis management comment s: DDX: cervicitis, UTI, PID, STI, renal calculi, pyelonephritis, TOA, ovarian torsion, Clinical Impression 1. Dysuria I have reviewed the patient' s current medication, allergies, social and family history. Visit Vitals BP 116/74 Pulse 65 Temp 97.4 F (36.3 C) Resp 18 Ht 5' 7" (1.702 m) Wt 62.4 kg SpO2 99% BMI 21.54 kg/m2 BSA 1.72 m2 Staffed w/ ED Attending (who agrees w/ assessmen t and plan) Dr: Javon Plan: 1. Labs 2. UA, Upreg, 3. Pelvic exam Labs Reviewed BASIC METABOLIC PANEL - Abnormal; Notable for th e following components: Result Value Calcium 12.0 (*) eGFR If Am 76 (*) eGFR If non- Am 65 (*) Anion Gap 4 (*) All other components within normal limits Narrative: The eGFR is calculated using the CKD-EPI Creati nine Equation (2009) CBC - Abnormal; Notable for the following compon ents: MCH 26.6 (*) MCHC 31.0 (*) Monocytes(Absolute) 0.44 (*) All other components within normal limits URINALYSIS - Abnormal; Notable for the following components: Leukocyte 2+ (*) Epithelial Cell 13 (*) Urobilinogen, Ur 1.0 (*) All other components within normal limits HIV AG/AB COMBO DIAGNOSTIC/SYMPTOMATIC - Normal LIPASE - Normal LIVER PROFILE - Normal CBC/DIFF Narrative: The following orders were created for panel ord er CBC/Diff. Procedure Abnormality Status --------- ------ CBC/Diff[[id number]] Abnormal Final result Please view results for these tests on the [employer] idual orders. URINALYSIS Narrative: The following orders were created for panel ord er Urinalysis. Procedure Abnormality Status --------- ------ Urinalysis[[id number]] Abnormal Final result Please view results for these tests on the [employer] idual orders. No orders to display Medications - No data to display Medical Decision Making: Patient is a 51 y.o. female that presents to the emergency department with complaint of dysuria, urinary frequency, and vaginal discharge for 1-2 weeks with no relief of symptoms. Patient endorses havin g unprotected intercourse ap prox 2 weeks ago. Patient at present denies any nausea/vomiting, fever/chills, chest pain, shortness of breath, hematuria, melena/hematochezia, vaginal bleeding. PEX: alert/oriented/no acute distress, CBBS on auscultation, RRR, pelvic exam, pelvic exam: vaginal vault thick white discharge present with +CMT and right adnexa tenderness, no cva tendereness. -plan: labs, UA, Upreg, pelvic exam. -Concern for PID given histo ry and PEX. Will treat with antibiotics and DC home with PCP follow up. -Patient counseled on sexual behavior. -Plan and ER return precauti ons discussed with patient, verbalized understanding, agreeable with plan, anticipitory guidance given, and all questions answered. -Plan discussed with EC attending and agrees. Kendell Byrnes NP Emergency Medicine Kendell Byrnes Jr., NP 01/09/221851 Associated attestation - Luis Alejandro Jr., MD - 01/10/2022 8:30 AM CDT Formatting of this note is different from the or iginal. Attending Note: I have discussed the patient's care with the PA/ SOLID TIRE TUBER MACHINE OPERATOR and I agree with the plan. Clinical Impression: 1. Dysuria Luis Alejandro Jr., MD 01/10/22 8:30 AM 2022-01-08 [facility] 22:32:00-00:00 Pt received ambulatory with steady gait to blue pod hallway bed. Pt reports dysuria, foul odorous white vaginal discharge, lower pelvic pain x 1 week. States she had unprotected sex on mothers day. PMH System of bipolar, paranoia, schizo phrenic (states hasn't taken her meds). Pt AOx4, GCS 15. Resp even/unlabored. Skin is warm, dry and appropriate to ethnicity. Cap refill less than 3 sec. Abdomen is soft, non distended, no pain on palpat ion. Denies SOB, chest pain, N/V, fever/chills. VSS, pending QMP orders. Electronically signed by Merary Gunn at 0 01/09/2022 12:37 AM CDT 2022-01-08 Formatting of this note is different fro m the original. Physician [employer] Sales Deliverer [facility] 18:36:42-00:00 MEDICAL SCREENING EXAMINATION PROVIDER NOTE System I evaluated and initiated e medical screening examination of patient Brenda Vasquez. I have reviewed the patient' s medical history, current medication, and allergies [place] Symptoms and Findings Vitals: 01/08/22 1831 BP: 115/67 Pulse: 80 Resp: 18 Temp: 98.4 F (36.9 C) SpO2: 100% Weight: 62.4 kg Height: 5' 7" (1.702 m) ASSESSMENT: Further evaluation will be n ecessary in order to determine if an emergency medical condition exists. The patient will continue in process until such time they are deemed ready for disposition. CC: Brenda Vasquez presents wit h Dysuria pt c/o dysuria x2-3 weeks and vaginal dc and itching s/p unprotected sex on mothers day. pt also c/o R flank pain. denies vomiting or fevers. pt very anxious in tri age, states staying at [facility] and is not allowed to take her psych meds while there), Vaginal Discharge, and Flank Pain No past medical history on file. No past surgical history on file. PHYSICAL EXAM: Brenda Vasquez appears non-toxic. A/O x 3 Ambulatory. abd TTP soft Exam limited 2/2 MSE chair/privacy Visit Vitals BP 115/67 Pulse 80 Temp 98.4 F (36.9 C) Resp 18 Ht 5' 7" (1.702 m) Wt 62.4 kg SpO2 100% BMI 21.54 kg/m2 BSA 1.72 m2 PLAN: Labs Reviewed - No data to display No orders to display Medications - No data to display The following have been ordered to facilitate ev aluation: Laboratory Studies PROGRESS: Brenda Vasquez was instruct ed to alert the commissioned fire officer if there are any changes or new concerns. Returned to waiting room. Stable. BECKY Owens January 08, 2022 6:36 PM Chrissie Escobedo PA-C #[id number] Emergency Medicine Chrissie Escobedo PA 01/08/22 1838 Electronically signed by Chrissie Escobedo PA at 0 01/08/2022 6:38 PM CDT 2022-01-08 [facility] 18:36:29-00:00 Pt is in NAD, AAOX4, respirations even and unlab ored. System
[2022-12-14] MEDS ORDERED: ONDANSETRON 4 MG/2 ML VIAL ONE (16:21)
[2022-12-14] MEDS ORDERED: FAMOTIDINE 20 MG/2 ML VIAL IV ONE (16:21)
[2022-12-14] MEDS ORDERED: MORPHINE 4 MG/ML SYR ONE (16:21)
[2022-12-14] MEDS ORDERED: NA CHLORIDE 0.9% 1,000 ML ONE (16:21)
[2022-12-14 16:45] LABS: Absolute Lymphocytes (CBC) 0.9 K/uL (0.7-4.9); Hematocrit 36.3 % (36.0-45.0); Lymphocytes % 23.8 % (15.3-44.8); MCV 84.3 fL (80-100); MPV 7.4 fL (7.6-11.3)
[2022-12-14 17:17] LABS: Albumin 3.6 g/dL (3.4-5.0); Bilirubin Total 0.3 mg/dL (0.2-1.0); Magnesium 1.7 mg/dL (1.6-2.4); Potassium 3.8 mEq/L (3.5-5.1); Troponin High Sensitivity 35.9 pg/mL (<58.9)
[2022-12-14 17:43] LABS: Phosphorus 1.2 mg/dL (2.5-4.9)
[2022-12-14] MEDS ORDERED: DIPHENHYDRAMINE 50 MG/ML VIAL ONE (18:38)
[2022-12-14] MEDS ORDERED: METHYLPREDNISOLONE 125 MG INJ ONE (18:38)
[2022-12-14 18:52] LABS: Specific Gravity 1.027 (1.005-1.030)
[2022-12-14 19:00] LABS: Barbiturates NEGATIVE (NEGATIVE); Benzodiazepines NEGATIVE (NEGATIVE); Cocaine POSITIVE (NEGATIVE); METHAMPHETAM NEGATIVE (NEGATIVE); Methadone NEGATIVE (NEGATIVE); Opiates POSITIVE (NEGATIVE); Phencyclidine NEGATIVE (NEGATIVE); THC Cannibis NEGATIVE (NEGATIVE)
[2022-12-14 19:02] LABS: Specific Gravity 1.027 (1.005-1.030); Urine Bacteria <20 /HPF (<20); Urine Bilirubin NEGATIVE (Negative); Urine Blood 1+ (Negative); Urine Clarity Turbid (Clear); Urine Color Yellow (Yellow); Urine Glucose NEGATIVE (Negative); Urine Mucus 1+ /HPF (None Seen); Urine Protein 1+ (Negative); Urine RBC <5 /HPF (None Seen); Urine Urobilinogen 1+ (Normal)
--- NOTE | 2022-12-14 19:26 | RAD REPORT ---
EXAM DESCRIPTION: CT - Abdomen Pelvis W Contrast - 12/14/2022 6:51 pm CLINICAL HISTORY: NAUSEA / VOMITING COMPARISON: No comparisons TECHNIQUE: Thin cut axial CT imaging of the abdomen and pelvis was performed following intravenous a dministration of 100 mL Isovue 300. Multiplanar reformats were generated and reviewed. All CT scans are performed using dose optimization technique as appropriate and may include automated exposure control or mA/KV adjustment according to patient size. FINDINGS: No suspicious findings in the lung bases. The liver demonstrates scattered subcentimeter hypoattenuating lesions, too small to characterize, bu t statistically likely to represent small cysts. Adrenal glands, spleen, and pancreas show no suspici ous findings. Gallbladder and biliary tree are also without suspicious finding. Symmetric renal function is seen with no hydronephrosis or suspicious renal mass. No dilated bowel loops or bowel wall thickening. No free air, free fluid or inflammatory stranding. N o hernia, mass or bulky lymphadenopathy. The urinary bladder is without significant finding. No suspicious bony findings. IMPRESSION: No acute intra-abdominal process.
--- NOTE | 2022-12-14 19:48 | EDPHYS ---
Physician Documentation [facility] Name: Kandice Tee Age: 51 yrs Sex: Female : 1970 Arrival Date: 12/14/2022 Time: 15:57 Bed 6 Private MD: ED Physician Giuseppe Heaton HPI: 12/14 16:10 This 51 yrs old Black Female presents to ER via EMS with complaints of Nausea/Vomiting. cp 16:10 The patient presents to the emergency department with nausea, with "dry heaves", cp vomiting, that is continuous, abdominal pain, of the mid and lower abdomen. 16:10 Onset: The symptoms/episode began/occurred 2 day(s) ago. Possible causes: unknown. cp 16:10 Associated signs and symptoms: Pertinent positives: anorexia, Pertinent negatives: cp constipation, diarrhea, fever, GI bleeding. Severity of symptoms: in the emergency department the symptoms are unchanged despite EMS interventions. Historical: - Allergies: 16:01 No Known Allergies; ll1 - PMHx: 16:01 paranoid schizophrenia; ll1 - PSHx: 16:01 None; ll1 - Immunization history:: Adult Immunizations up to date. - Social history:: Smoking status: Patient reports the use of cigarette tobacco products, smokes one-half pack cigarettes per day. ROS: 16:15 Constitutional: Positive for poor PO intake, Negative for body aches, chills, fever. cp 16:15 Eyes: Negative for injury, pain, redness, and discharge. cp 16:15 ENT: Negative for drainage from ear(s), ear pain, sore throat, difficulty swallowing, difficulty handling secretions. 16:15 Cardiovascular: Negative for chest pain, palpitations. 16:15 Respiratory: Negative for cough, shortness of breath, wheezing. 16:15 Abdomen/GI: Positive for abdominal pain, nausea and vomiting, anorexia, Negative for diarrhea, constipation, hematemesis, black/tarry stool, rectal bleeding. 16:15 : Negative for urinary symptoms. 16:15 Neuro: Negative for altered mental status, dizziness, headache, numbness, syncope. 16:15 All other systems are negative. Exam: 16:20 Constitutional: The patient appears in no acute distress, alert, awake, cp non-diaphoretic, non-toxic, well developed, well nourished, uncomfortable. 16:20 Head/Face: Normocephalic, atraumatic. cp 16:20 Eyes: Periorbital structures: appear normal, Pupils: equal, round, and reactive to light and accomodation, Extraocular movements: intact throughout, Conjunctiva: normal, no exudate, no injection, Sclera: no appreciated abnormality, Lids and lashes: appear normal, bilaterally. 16:20 ENT: External ear(s): are unremarkable, Nose: is normal, Mouth: Lips: moist, Oral mucosa: pink and intact, moist, Posterior pharynx: is normal, airway is patent, no erythema, no exudate. 16:20 Neck: ROM/movement: is normal, is supple, without pain, no range of motions limitations. 16:20 Chest/axilla: Inspection: normal. 16:20 Cardiovascular: Rate: normal, Rhythm: regular, Edema: is not appreciated, JVD: is not appreciated. 16:20 Respiratory: the patient does not display signs of respiratory distress, Respirations: normal, no use of accessory muscles, no retractions, labored breathing, is not present, Breath sounds: are clear throughout, no decreased breath sounds, no stridor, no wheezing. 16:20 Abdomen/GI: Inspection: abdomen appears normal, Bowel sounds: active, all quadrants, Palpation: soft, in all quadrants, moderate abdominal tenderness, in the umbilical area, right lower quadrant and left lower quadrant, rebound tenderness, is not appreciated, involuntary guarding, is not appreciated. 16:20 Back: CVA tenderness, is absent. 16:20 Neuro: Orientation: to person, place \\T\\ time. Mentation: is normal, Motor: moves all fours, strength is normal, Sensation: is normal. 17:07 ECG was reviewed by the Attending Physician. cp Vital Signs: 16:00 BP 128 / 79; Pulse 69; Resp 18; Temp 98.6; Pulse Ox 97% on R/A; Pain 9/10; ll1 17:13 BP 104 / 75; Pulse 78; Resp 18; Pulse Ox 96% on R/A; ph 18:13 BP 110 / 80; Pulse 74; Resp 16; Pulse Ox 96% ; bp 19:25 BP 93 / 79; Pulse 69; Resp 19; Pulse Ox 98% on R/A; kd3 16:00 Pain Scale: Adult ll1 MDM: 16:01 Patient medically screened. 19:46 Data reviewed: vital signs, nurses notes, lab test result(s), EKG, radiologic studies, cp CT scan, plain films. 19:46 Consideration of Admission/Observation Escalation of care including cp admission/observation considered. I considered the following discharge prescriptions or medication management in the emergency department Medications were administered in the Emergency Department. See MAR. Independent interpretation of the following test(s) in the Emergency Department EKG: See my EKG interpretation above X-Ray: My interpretation is chest image negative for infiltrates. Counseling: I had a detailed discussion with the patient and/or guardian regarding: the historical points, exam findings, and any diagnostic results supporting the discharge/admit diagnosis, lab results, radiology results, to return to the emergency department if symptoms worsen or persist or if there are any questions or concerns that arise at home. Response to treatment: the patient's symptoms have markedly improved after treatment, Pain and nausea markedly improved, vomiting resolved. Patient tolerating po fluids. Will discharge to home for continued monitoring. 12/14 16: Order name: CBC with Diff; Complete Time: : cp 12/14 19: Interpretation: Normal except: WBC 3.70; HGB 11.8; MPV 7.4. cp 12/14 16:03 Order name: CMP; Complete Time: : cp 12/14 19:09 Interpretation: Normal except: NA 133; ANION GAP 4.8; GLUC 130; CA 11.0; GLOB 4.4; A/G cp 0.8. 12/14 16:03 Order name: Lipase; Complete Time: : cp 12/14 16: Order name: Test, Urine; Complete Time: : cp 12/14 16: Order name: Urinalysis w/ reflexes; Complete Time: : cp 12/14 19: Interpretation: Normal except: UCLA Turbid; UKET 2+; UBLD 1+; UPROT 1+; UUROB 1+; VITO cp Cx 2+; BYST Trace; UESTR 250. 12/14 16:03 Order name: Troponin HS; Complete Time: 19: cp 12/14 16:03 Order name: Magnesium; Complete Time: : cp 12/14 16:03 Order name: Phosphorus; Complete Time: :08 cp 12/14 16:51 Order name: UDS; Complete Time: 19:08 cp 12/14 19:12 Interpretation: Normal except: MARLON POSITIVE; OPI POSITIVE. cp 05 16:51 Order name: COVID-19 SARS RT PCR; Complete Time: 19:08 cp 12/14 16:51 Order name: Influenza Screen (a \\T\\ B); Complete Time: 19:08 cp 12/14 16:03 Order name: CT Abd/Pelvis - IV Contrast Only; Complete Time: 19:28 cp 12/14 16:03 Order name: EKG; Complete Time: 16:04 cp 12/14 16:03 Order name: IV Saline Lock; Complete Time: 16:32 cp 12/14 16:03 Order name: Labs collected and sent; Complete Time: 16:32 cp 12/14 16:03 Order name: EKG - Nurse/Tech; Complete Time: 17:12 cp 12/14 19:30 Order name: PO challenge; Complete Time: 19:30 cp EC:07 Rate is 72 beats/min. Rhythm is regular. VA interval is normal. QRS interval is normal. cp QT interval is normal. T waves are Inverted in lead aVL. Interpreted by me. Reviewed by me. Administered Medications: 16:32 Drug: NS 0.9% IV 1000 ml Route: IV; Rate: 1 bolus; Site: left antecubital; ph 18:36 Follow up: Response: No adverse reaction; IV Status: Completed infusion; IV Intake: ph 1000ml 16:32 Drug: Famotidine IVP 20 mg Route: IVP; Site: left antecubital; ph 18:36 Follow up: Response: No adverse reaction ph 16:32 Drug: Ondansetron IVP 4 mg Route: IVP; Site: left antecubital; ph 18:37 Follow up: Response: No adverse reaction; Nausea is decreased ph 17:12 Drug: morphine IVP or IV 4 mg Route: IVP; Infused Over: 4 mins; Site: left antecubital; ph 18:37 Follow up: Response: No adverse reaction; Pain is decreased; RASS: Alert and Calm (0) ph 20:05 Drug: Dicyclomine IM 20 mg Route: IM; Site: left deltoid; ha1 20:17 Follow up: Response: No adverse reaction ha1 Disposition Summary: 12/14/22 19:47 Discharge Ordered Location: Home cp Problem: new cp Symptoms: have improved cp Condition: Stable cp Diagnosis - Nausea with vomiting, unspecified cp - Abdominal pain, unspecified cp - Cocaine abuse cp Followup: cp - With: Private Physician - When: 1 - 2 days - Reason: Recheck today's complaints Discharge Instructions: - Discharge Summary Sheet cp - Abdominal Pain, Adult cp - Nausea and Vomiting, Adult cp Forms: - Medication Reconciliation Form cp - Thank You Letter cp - Antibiotic Education cp - Prescription Opioid Use cp Prescriptions: - Zofran 4 mg Oral Tablet - take 1 tablet by ORAL route every 12 hours As needed; 20 tablet; Refills: 0, cp Product Selection Permitted - dicyclomine 20 mg Oral Tablet - take 1 tablet by ORAL route 4 times per day; 30 tablet; Refills: 0, Product cp Selection Permitted Signatures: Dispatcher [employer] [facility] Sharita Espinosa RN RN Giuseppe Granados PA PA cp Lewis, Lynsay, RN RN ll1 Alma Skinner RN RN ha1 Corrections: (The following items were deleted from the chart) 19:04 16:51 SARS-COV-2 Antigen Rapid+I.LAB.BRZ ordered. [facility] EDGA 12/15 14:44 12/14 16:10 The patient presents to the emergency department with nausea, with "dry cp heaves", vomiting, that is continuous, abdominal pain, of the abdomen diffusely, cp
--- NOTE | 2022-12-14 19:48 | ER ---
Nurse's Notes [facility] Name: Kandice Tee Age: 51 yrs Sex: Female : 1970 Arrival Date: 12/14/2022 Time: 15:57 Bed 6 Private MD: Diagnosis: Nausea with vomiting, unspecified;Abdominal pain, unspecified;Cocaine abuse Presentation: 12/14 16:00 Chief complaint: Patient states: N/V for 2 days, worse today. Lower abdominal pain. No ll1 fever. Coronavirus screen: Vaccine status: Patient reports receiving the 2nd dose of the covid vaccine. Client denies travel out of the [place] in the last 14 days. fatigue, nausea, vomiting. Ebola Screen: Patient denies travel to an Ebola-affected area in the 21 days before illness onset. Initial Sepsis Screen: Does the patient meet any 2 criteria? No. Patient's initial sepsis screen is negative. Does the patient have a suspected source of infection? Yes: Acute abdominal pain. Risk Assessment: Do you want to hurt yourself or someone else? Patient reports no desire to harm self or others. Onset of symptoms was December 13, 2022. 16:00 Method Of Arrival: EMS ll1 16:00 Acuity: SHYANNE 3 ll1 Triage Assessment: 16:02 General: Appears uncomfortable, Behavior is cooperative, appropriate for age. Pain: ll1 Complains of pain in abdomen Quality of pain is described as aching, crampy. GI: Reports lower abdominal pain, nausea, vomiting. Historical: - Allergies: 16:01 No Known Allergies; ll1 - PMHx: 16:01 paranoid schizophrenia; ll1 - PSHx: 16:01 None; ll1 - Immunization history:: Adult Immunizations up to date. - Social history:: Smoking status: Patient reports the use of cigarette tobacco products, smokes one-half pack cigarettes per day. Screenin:29 [facility] ED Fall Risk Assessment (Adult) History of falling in the last 3 months, ph including since admission No falls in past 3 months (0 pts) Confusion or Disorientation No (0 pts) Intoxicated or Sedated No (0 pts) Impaired Gait No (0 pts) Mobility Assist Device Used No (0 pt) Altered Elimination No (0 pt) Score/Fall Risk Level 0 - 2 = Low Risk Oriented to surroundings, Maintained a safe environment, Hourly rounding (assess needs \\T\\ fall precautionary measures) done. Abuse screen: Denies threats or abuse. Denies injuries from another. Nutritional screening: No deficits noted. Tuberculosis screening: No symptoms or risk factors identified. Assessment: 16:30 General: Appears in no apparent distress. Behavior is cooperative, appropriate for age, ph anxious. Pain: Denies pain. Neuro: Level of Consciousness is awake, alert, obeys commands, Oriented to person, place, time, situation. Cardiovascular: Capillary refill < 3 seconds in bilateral fingers Patient's skin is warm and dry. Respiratory: Airway is patent Respiratory effort is even, unlabored, Respiratory pattern is regular, symmetrical. GI: Abdomen is non-distended, Reports nausea, vomiting. Derm: Skin is pink, warm \\T\\ dry. Musculoskeletal: Circulation, motion, and sensation intact. Range of motion: intact in all extremities. 18:13 Reassessment: No changes from previously documented assessment. Patient is alert, bp oriented x 3, equal unlabored respirations, skin warm/dry/pink. PT STATES "THIS AIN'T THE CRACK I SMOKED, IT'S GOTTA BE THE COVID". 19:25 General: Appears comfortable, Behavior is cooperative. Pain: Denies pain. Neuro: Level ha1 of Consciousness is awake, alert, obeys commands, Oriented to person, place, time, situation. Cardiovascular: Capillary refill < 3 seconds Patient's skin is warm and dry. Respiratory: Airway is patent Respiratory effort is even, unlabored, Respiratory pattern is regular, symmetrical. GI: Abdomen is flat, non-distended, Patient currently denies nausea. Derm: Skin is normal. Musculoskeletal: Range of motion: intact in all extremities. 20:17 Reassessment: Patient and/or family updated on plan of care and expected duration. Pain ha1 level reassessed. Patient is alert, oriented x 3, equal unlabored respirations, skin warm/dry/pink. Patient denies pain at this time. Vital Signs: 16:00 BP 128 / 79; Pulse 69; Resp 18; Temp 98.6; Pulse Ox 97% on R/A; Pain 9/10; ll1 17:13 BP 104 / 75; Pulse 78; Resp 18; Pulse Ox 96% on R/A; ph 18:13 BP 110 / 80; Pulse 74; Resp 16; Pulse Ox 96% ; bp 19:25 BP 93 / 79; Pulse 69; Resp 19; Pulse Ox 98% on R/A; kd3 16:00 Pain Scale: Adult ll1 ED Course: 15:59 Patient arrived in ED. ll1 16:01 Giuseppe Nguyen PA is PHCP. cp 16:01 Giuseppe Heaton MD is Attending Physician. cp 16:01 Triage completed. ll1 16:02 Arm band placed on Patient placed in an exam room, on a stretcher. ll1 16:06 Radiology exam delayed due to lab results not completed at this time. (BUN/Creatinine) [id number] IV insertion attempt and/or patient not having appropriate IV at this time. 16:28 Sharita Espinosa, RN is Primary Nurse. ph 16:28 Initial lab(s) drawn, by me, sent to lab. Inserted saline lock: 22 gauge in left ph antecubital area, using aseptic technique. Blood collected. 16:29 Patient has correct armband on for positive identification. Bed in low position. Call ph light in reach. Side rails up X 1. Pulse ox on. NIBP on. Door closed. Noise minimized. Warm blanket given. 16:32 CBC with Diff Sent. ph 16:32 CMP Sent. ph 16:32 Lipase Sent. ph 17:12 Influenza Screen (a \\T\\ B) Sent. ph 17:12 COVID-19 SARS RT PCR Sent. ph 18:36 Test, Urine Sent. ph 18:36 Urinalysis w/ reflexes Sent. ph 18:53 CT Abd/Pelvis - IV Contrast Only In Process Unspecified. EDMS 20:17 No provider procedures requiring assistance completed. IV discontinued, intact, ha1 bleeding controlled, No redness/swelling at site. Pressure dressing applied. Administered Medications: 16:32 Drug: NS 0.9% IV 1000 ml Route: IV; Rate: 1 bolus; Site: left antecubital; ph 18:36 Follow up: Response: No adverse reaction; IV Status: Completed infusion; IV Intake: ph 1000ml 16:32 Drug: Famotidine IVP 20 mg Route: IVP; Site: left antecubital; ph 18:36 Follow up: Response: No adverse reaction ph 16:32 Drug: Ondansetron IVP 4 mg Route: IVP; Site: left antecubital; ph 18:37 Follow up: Response: No adverse reaction; Nausea is decreased ph 17:12 Drug: morphine IVP or IV 4 mg Route: IVP; Infused Over: 4 mins; Site: left antecubital; ph 18:37 Follow up: Response: No adverse reaction; Pain is decreased; RASS: Alert and Calm (0) ph 20:05 Drug: Dicyclomine IM 20 mg Route: IM; Site: left deltoid; ha1 20:17 Follow up: Response: No adverse reaction ha1 Medication: 16:29 VIS not applicable for this client. ph Intake: 18:36 IV: 1000ml; Total: 1000ml. ph Outcome: 19:47 Discharge ordered by MD. cp 20:17 Discharged to home ambulatory. ha1 20:17 Condition: stable 20:17 Discharge instructions given to patient, Instructed on discharge instructions, follow up and referral plans. medication usage, Demonstrated understanding of instructions, follow-up care, medications, Prescriptions given X 2. 20:18 Patient left the ED. ha1 Signatures: Dispatcher [employer] EDSharita Velasquez RN RN Giuseppe Granados, BECKY PA Feliciano Sy RN RN Carol Rene RN RN [email or web address] Bonita Bueno RN RN [id number] Alma Skinner RN RN ha1 Kellen Duong [id number]
[2022-12-14] MEDS ORDERED: DICYCLOMINE HCL 20 MG/2 ML AMP IM ONE (20:13)
[2022-12-14 20:48] VITALS: TEMP 98.6
[2022-12-14 20:55] VITALS: BP 93/79; O2SAT 98
--- NOTE | 2022-12-15 13:25 | EKG ---
Test Date: 2022-12-14 Test Time: 17:01:22 [employer]: PH MEASUREMENT RESULTS: Intervals: Rate: 72 [place]: 164 QRSD: 90 QT: 376 QTc: 411 [place]eler: P: 76 NJ: 164 QRS: 66 T: 64 INTERPRETIVE STATEMENTS: Normal sinus rhythm with sinus arrhythmia Normal ECG No previous ECG available for comparison Electronically Signed On 12-15-22 13:25:28 CDT by Dakota Osorio
== END 2022-12-14 20:18 | disposition home or self-care (01) ==
LOC: ER 15:57
DX: F14.10 Cocaine abuse, uncomplicated (principal); R10.9 Unspecified abdominal pain; F17.210 Nicotine dependence, cigarettes, uncomplicated; F20.0 Paranoid schizophrenia; Z20.822 Contact with and (suspected) exposure to COVID-19
CPT/HCPCS: 96361; 93005; 85025; 81001; 36415; 83735; 81025; 84100; 84484; 83690; 80053; 80307; 87804 ×2; 74177; 96375; 96372; 96374; 99284; U0003; Q9967; J0500; J1200; J2930; J2405; J7030

== ENCOUNTER 2022-12-21 12:15 | Emergency (ER) | payer OTHER ==
[2022-12-21] MEDS ORDERED: ONDANSETRON 4 MG/2 ML VIAL ONE (12:46)
[2022-12-21] MEDS ORDERED: KETOROLAC 30 MG/ML INJ ONE (12:46)
[2022-12-21] MEDS ORDERED: NA CHLORIDE 0.9% 1,000 ML ONE (12:47)
[2022-12-21] MEDS ORDERED: FAMOTIDINE 20 MG/2 ML VIAL IV ONE (12:47)
[2022-12-21] MEDS ORDERED: HALOPERIDOL LACT 5 MG/ML INJ ONE (12:47)
[2022-12-21 12:56] LABS: Absolute Lymphocytes (CBC) 1.6 K/uL (0.7-4.9); Hematocrit 39.7 % (36.0-45.0); Lymphocytes % 35.2 % (15.3-44.8); MCV 84.1 fL (80-100); MPV 6.8 fL (7.6-11.3); RBC Red Blood Cell Count 4.72 M/uL (3.86-4.86)
--- OUTSIDE RECORDS SUMMARY | 2022-12-21 13:07 | XMS REPORT | Continuity of Care Document ---
:1970 Author Organization [facility] t Address [address] [place] [place] [address] Care Team Providers Name Role Phone Samantha Beasley Primary Care Physician [phone] Javon Bundy MD, Luis Randhawa Attending Clinician [phone] EDITH Attending Clinician Unavailable DR ROMANA HARRIS Attending Clinician Unavailable EDITH Admitting Clinician Unavailable DR ROMANA HARRIS Admitting Clinician Unavailable Payers Payer Name Policy Type Policy Number Effective Date Expiration Date [facility] [id number] 2017 [employer] - 00:00:00 [facility] (MEDICAID HMO) Problems This patient has no known problems. Allergies, Adverse Reactions, Alerts This patient has no known allergies or adverse reactions. Social History Social Habit Start Date Stop Date Quantity Comments Source Gender identity Calvin Baker alth Sexual orientation [facility] History of Social 2022-08-25 2022-08-25 [facility] function 00:00:00 00:00:00 Exposure to SARS-CoV-2 2021-12-29 2022-01-08 Not sure [facility] (event) 00:00:00 18:35:00 Sex Assigned At [birth year] [facility] 00:00:00 00:00:00 Medications Ordered Filled Start Stop [...] STERILE 00:44: 03:38 on Mon INJECTION 28 :01/09/22 at SOLUTION 0044 Pyxis Override WATER FOR No 1 dose, Kait is INJECTION, 01-09 Starting Heal th STERILE 00:44: 03:38 on Mon INJECTION 28 :03 01/09/22 at SOLUTION 0044 Pyxis Override cefTRIAXone 500mg 500 mg [facility] (ROCEPHIN) 01-09 (8.01 Health injection 00:34: 01:10 mg/kg), 500 mg 00 :00 Intramuscu lar, ONCE, 1 dose, On Sun01/09/22 at 0034, STAT cefTRIAXone 500mg 500 mg [facility] (ROCEPHIN) 01-09 (8.01 Health injection 00:34: 01:10 mg/kg), 500 mg 00 :00 Intramuscu lar, ONCE, 1 dose, On Sun01/09/22 at 0034, STAT doxycycline 2021- No [id number] 100mg Q.5D Take 1 [facility] monohydrate 01-09 capsule by Jesus mathias (MONODOX) 00:00: 23:59 mouth 2 100 mg 00 :00 times capsule daily for 10 days metroNIDAZO 2021-2021- No [id number] 500mg Q.5D Take 1 [facility] LE (FLAGYL) 01-09 tablet by Samuel alth 500 mg 00:00: 23:59 mouth 2 tablet 00 :00 times daily for 10 days doxycycline 2021-2021- No [id number] 100mg Q.5D Take 1 [facility] monohydrate 01-09 capsule by Jesus mathias (MONODOX) 00:00: 23:59 mouth 2 100 mg 00 :00 times capsule daily for 10 days metroNIDAZO 2021-2021- No [id number] 500mg Q.5D Take 1 [facility] LE (FLAGYL) 01-09 tablet by He alth 500 mg 00:00: 23:59 mouth 2 tablet 00 :00 times daily for 10 days doxycycline 2021- No Dysuria 100mg Q.5D Take 1 [facility] monohydrate 601-19 capsule by H ealth (MONODOX) 00:00: 23:59 mouth 2 100 mg 00 :00 times capsule daily for 10 days metroNIDAZO 2021-2021- No Dysuria 500mg Q.5D Take 1 [facility] LE (FLAGYL) 01-09 tablet by Samuel alth 500 mg 00:00: 23:59 mouth 2 tablet 00 :00 times daily for 10 days doxycycline 2021- No Dysuria 100mg Q.5D Take 1 [facility] monohydrate 01-09 capsule by H ealth (MONODOX) 00:00: 23:59 mouth 2 100 mg 00 :00 times capsule daily for 10 days metroNIDAZO 2021-2021- No Dysuria 500mg Q.5D Take 1 [facility] LE (FLAGYL) 01-09 tablet by Samuel alth 500 mg 00:00: 23:59 mouth 2 tablet 00 :00 times daily for 10 days doxycycline 2021- No Dysuria 100mg Q.5D Take 1 [facility] monohydrate 01-09 capsule by H [facility]alth (MONODOX) 00:00: 23:59 mouth 2 100 mg 00 :00 times capsule daily for 10 days metroNIDAZO 2021-2021- No Dysuria 500mg Q.5D Take 1 [facility] (FLAGYL) 01-09 tablet by Samuel alth 500 mg 00:00: 23:59 mouth 2 tablet 00 :00 times daily for 10 days doxycycline 2021-2021- No Dysuria 100mg Q.5D Take 1 [facility] monohydrate 601-19 capsule by H ealth (MONODOX) 00:00: 23:59 mouth 2 100 mg 00 :00 times capsule daily for 10 days metroNIDAZO 2021-2021- No Dysuria 500mg Q.5D Take 1 [facility] LE (FLAGYL) 6-13 06-23 tablet by Samuel alth 500 mg 00:00: [...] Systolic blood pressure 2022-01-09 01:20:00 100 mm[Hg] [facility] Diastolic blood pressure 2022-01-09 01:20:00 59 mm[Hg] [facility] Heart rate 2022-01-09 01:20:00 84 /min [facility] Body temperature 2022-01-09 01:20:00 36.67 Ameena [facility] Respiratory rate 2022-01-09 01:20:00 18 /min Kait is [facility] Oxygen saturation in 2022-01-09 01:20:00 97 /min [facility] Arterial blood by Pulse oximetry Systolic blood pressure 2022-01-09 01:20:00 100 mm[Hg] [facility] Diastolic blood pressure 2022-01-09 01:20:00 59 mm[Hg] [facility] Heart rate 2022-01-09 01:20:00 84 /min [facility] Body temperature 2022-01-09 01:20:00 36.67 Ameena [facility] Health Respiratory rate 2022-01-09 01:20:00 18 /min [facility] Oxygen saturation in 2022-01-09 01:20:00 97 /min [facility] Arterial blood by Pulse oximetry BMI 2022-01-08 18:31:00 21.54 kg/m2 [facility] Body height 2022-01-08 18:31:00 170.2 cm [facility] Body weight 2022-01-08 18:31:00 62.37 kg [facility] Body height 2022-01-08 18:31:00 170.2 cm [facility] Body weight 2022-01-08 18:31:00 62.37 kg [facility] BMI 2022-01-08 18:31:00 21.54 kg/m2 [facility] Systolic blood pressure 2022-01-09 01:20:00 100 mm[Hg] [facility] Diastolic blood pressure 2022-01-09 01:20:00 59 mm[Hg] [facility] Heart rate 2022-01-09 01:20:00 84 /min [facility] Body temperature 2022-01-09 01:20:00 36.67 Ameena [facility] Respiratory rate 2022-01-09 01:20:00 18 /min [facility] Oxygen saturation in 2022-01-09 01:20:00 97 /min [facility] Arterial blood by Pulse oximetry Systolic blood pressure 2022-01-09 01:20:00 100 mm[Hg] [facility] Diastolic blood pressure 2022-01-09 01:20:00 59 mm[Hg] [facility] Heart rate 2022-01-09 01:20:00 84 /min [facility] Body temperature 2022-01-09 01:20:00 36.67 Ameena [facility] Respiratory rate 2022-01-09 01:20:00 18 /min [facility] Oxygen saturation in 2022-01-09 01:20:00 97 /min [facility] Arterial blood by Pulse oximetry BMI 2022-01-08 18:31:00 21.54 kg/m2 [facility] Body height 2022-01-08 18:31:00 170.2 cm [facility] ealt Body weight 2022-01-08 18:31:00 62.37 kg [facility] ealt Body height 2022-01-08 18:31:00 170.2 cm [facility] Body weight 2022-01-08 18:31:00 62.37 kg [facility] ealt BMI 2022-01-08 18:31:00 21.54 kg/m2 [facility] Systolic blood pressure 2022-01-09 01:20:00 100 mm[Hg] [facility] Diastolic blood pressure 2022-01-09 01:20:00 59 mm[Hg] [facility] Heart rate 2022-01-09 01:20:00 84 /min [facility] Body temperature 2022-01-09 01:20:00 36.67 Ameena [facility] Respiratory rate 2022-01-09 01:20:00 18 /min [facility] Oxygen saturation in 2022-01-09 01:20:00 97 /min [facility] Arterial blood by Pulse oximetry Systolic blood pressure 2022-01-09 01:20:00 100 mm[Hg] [facility] Diastolic blood pressure 2022-01-09 01:20:00 59 mm[Hg] [facility] Heart rate 2022-01-09 01:20:00 84 /min [facility] Body temperature 2022-01-09 01:20:00 36.67 Ameena [facility] Respiratory rate 2022-01-09 01:20:00 18 /min [facility] Oxygen saturation in 2022-01-09 01:20:00 97 /min [facility] Arterial blood by Pulse oximetry BMI 2022-01-08 18:31:00 21.54 kg/m2 [facility] Body height 2022-01-08 18:31:00 170.2 cm [facility] Body weight 2022-01-08 18:31:00 62.37 kg [facility] Body height 2022-01-08 18:31:00 170.2 cm [facility] Body weight 2022-01-08 18:31:00 62.37 kg [facility] BMI 2022-01-08 18:31:00 21.54 kg/m2 [facility] BP Systolic 2022-03-08 15:27:00 102 mm[Hg] BP Diastolic 2022-03-08 15:27:00 64 mm[Hg] Weight Measured 2022-03-08 15:27:00 154.00 pounds Height Measured 2022-03-08 15:27:00 68.00 inches Body Temperature 2022-03-08 15:27:00 97.40 degrees Heart Rate 2022-03-08 15:27:00 90.00 /min Respiratory Rate 2022-03-08 15:27:00 Systolic blood pressure 2022-01-09 01:20:00 100 mm[Hg] [facility] Diastolic blood pressure 2022-01-09 01:20:00 59 mm[Hg] [facility] Heart rate 2022-01-09 01:20:00 84 /min [facility] Body temperature 2022-01-09 01:20:00 36.67 Ameena [facility] Respiratory rate 2022-01-09 01:20:00 18 /min [facility] Oxygen saturation in 2022-01-09 01:20:00 97 /min [facility] Arterial blood by Pulse oximetry Body height 2022-01-08 18:31:00 170.2 cm [facility] Body weight 2022-01-08 18:31:00 62.37 kg [facility] BMI 2022-01-08 18:31:00 21.54 kg/m2 [facility] Procedures Procedure Date / Time Performed Performing Clinician Sour e URINALYSIS 2022-01-08 19:31:00 [facility] 2022-01-08 19:31:00 [facility] 2022-01-08 19:31:00 [facility] 2022-01-08 19:31:00 [facility] 2022-01-08 19:31:00 [facility]obedo [facility] URINALYSIS 2022-01-08 19:31:00 Chrissie Escobedo [facility] h CBC/DIFF 2022-01-08 19:30:00 Chrissie Esocbedo [facility] BASIC METABOLIC PANEL 2022-01-08 19:30:00 Chrissie Escobedo [facility] HIV AG/AB COMBO 2022-01-08 19:30:00 Chrissie Escobedo h DIAGNOSTIC/SYMPTOMATIC LIPASE 2022-01-08 19:30:00 [facility] L[facility] PROFILE 2022-01-08 19:30:00 [facility] CBC 2022-01-08 19:30:00 [facility] BASIC METABOLIC PANEL 2022-01-08 19:30:00 Chrissie Escobedo [facility] CBC/DIFF 2022-01-08 19:30:00 [facility] HIV AG/AB COMBO 2022-01-08 19:30:00 [facility] DIAGNOSTIC/SYMPTOMATIC LIPASE 2022-01-08 19:30:00 [facility] L[facility]FILE 2022-01-08 19:30:00 Chrissie Escobedo [facility] CBC 2022-01-08 19:30:00 GreggChrissie [facility] BASIC METABOLIC PANEL 2022-01-08 19:30:00 GreggChrissie [facility] CBC/DIFF 2022-01-08 19:30:00 GreggSilvestrey [facility] HIV AG/AB COMBO 2022-01-08 19:30:00 GreggSilvestrey [facility] DIAGNOSTIC/SYMPTOMATIC LIPASE 2022-01-08 19:30:00 Gregg Chrissie [facility] LIVER PROFILE 2022-01-08 19:30:00 GreggChrissie [facility] CBC 2022-01-08 19:30:00 GreggSilvestrey [facility] Plan of Care Planned Activity Planned Date Details Comments Source Future Scheduled Test 2023-04-29 00:00:00 IMM Influenza [facility] Seasonal (>/= 19 yrs) [code = IMM Influenza Seasonal (>/= 19 yrs)] Future Scheduled Test 2022-04-29 00:00:00 IMM Influenza [facility] Seasonal (>/= 19 yrs) [code = IMM Influenza Seasonal (>/= 19 yrs)] Future Scheduled Test 2022-04-29 00:00:00 IMM Influenza [facility] Seasonal (>/= 19 yrs) [code = IMM Influenza Seasonal (>/= 19 yrs)] Future Scheduled Test 2022-04-29 00:00:00 IMM Influenza [facility] Seasonal (>/= 19 yrs) [code = IMM Influenza Seasonal (>/= 19 yrs)] Future Scheduled Test 2022-04-29 00:00:00 IMM Influenza [facility] Seasonal (>/= 19 yrs) [code = IMM Influenza Seasonal (>/= 19 yrs)] Future Scheduled Test 2020 00:00:00 Screening for [facility] malignant neoplasm of colon (procedure) [code = 020497090] Future Scheduled Test 2020 00:00:00 Screening for [facility] malignant neoplasm of colon (procedure) [code = 615723537] Future Scheduled Test 2020 00:00:00 Screening for [facility] malignant neoplasm of colon (procedure) [code = 904513747] Future Scheduled Test 2020 00:00:00 Screening for [facility] malignant neoplasm of colon (procedure) [code = 730632723] Future Scheduled Test 2020 00:00:00 Screening for [facility] malignant neoplasm of colon (procedure) [code = 851084367] Future Scheduled Test 2010 00:00:00 Breast Cancer [...] malignant neoplasm of cervix (procedure) [code = 623909960] Future Scheduled Test 2000 00:00:00 Screening for [facility] malignant neoplasm of cervix (procedure) [code = 967315257] Future Scheduled Test 2000 00:00:00 Screening for [facility] malignant neoplasm of cervix (procedure) [code = 596753741] Future Scheduled Test 2000 00:00:00 Screening for [facility] malignant neoplasm of cervix (procedure) [code = 321003323] Future Scheduled Test 2000 00:00:00 Screening for [facility] malignant neoplasm of cervix (procedure) [code = 839200177] Future Scheduled Test 2000 00:00:00 Screening for [facility] malignant neoplasm of cervix (procedure) [code = 284629819] Future Scheduled Test 2000 00:00:00 Screening for [facility] malignant neoplasm of cervix (procedure) [code = 784796779] Future Scheduled Test 2000 00:00:00 Screening for [facility] malignant neoplasm of cervix (procedure) [code = 733841406] Future Scheduled Test 2000 00:00:00 Screening for [facility] malignant neoplasm of cervix (procedure) [code = 984266240] Future Scheduled Test 2000 00:00:00 Screening for [facility] malignant neoplasm of cervix (procedure) [code = 806787802] Future Scheduled Test 1971-06-22 00:00:00 COVID-19 Vaccine (#1) [facility] [code = COVID-19 Vaccine (#1)] Future Scheduled Test 1971-06-22 00:00:00 COVID-19 Vaccine (#1) [facility] [code = COVID-19 Vaccine (#1)] Future Scheduled Test 1971-06-22 00:00:00 COVID-19 Vaccine (#1) [facility] [code = COVID-19 Vaccine (#1)] Future Scheduled Test 1971-06-22 00:00:00 COVID-19 Vaccine (#1) [facility] [code = COVID-19 Vaccine (#1)] Future Scheduled Test 1971-06-22 00:00:00 COVID-19 Vaccine (#1) [facility] [code = COVID-19 Vaccine (#1)] Future Scheduled Test 1970 00:00:00 Fluoride Varnish [facility] [code = Fluoride Varnish] Goal Plan of Care Note [code = 87442-1] Goal Plan of Care Note [code = 59171-1] Goal Plan of Care Note [code = 96558-5] Goal Plan of Care Note [code = 94735-5] Goal Plan of Care Note [code = 92865-1] Goal Plan of Care Note [code = 04734-9] Goal Plan of Care Note [code = 98650-9] Goal Plan of Care Note [code = 77562-9] Goal Plan of Care Note [code = 94019-8] Goal Plan of Care Note [code = 80700-1] Goal Plan of Care Note [code = 48809-0] Goal Plan of Care Note [code = 60875-2] Encounters Start End Encounter Admission Attending Care Care Encounter Source Date/Time Date/Time Type Type Clinicians Facility Department ID 2022-06-27 Outpatient [facility] [id number] [place] 12:00:38 [facility]alia 9 [place] 2022-06-16 Inpatient TEXANA TEXANA [place] 10:25:13 [place] 2022-03-15 Inpatient TEXANA TEXANA [place] 07:49:17 [place] 2022-02-03 Inpatient TEXANA TEXANA [place] 12:09:[id number] [place] [address] 2022-02-01 Inpatient TEXANA TEXANA [place] 16:28:[id number] [place] [address] 2022-01-31 Inpatient TEXANA TEXANA [place] 16:35:[id number] [place] [address] 2022-01-25 Inpatient TEXANA TEXANA [place] 09:34:[id number] [place] [address] 2022-01-24 Inpatient TEXANA TEXANA [place] 17:21:[id number] [place] [address] 2022-08-31 2022-08-31 Outpatient SFA SFA [id number] [place] 14:15:54 14:15:54 [id number] [facility] 2022-08-08 2022-08-08 Outpatient SFA SFA [place] 13:33:27 13:33:[id number] [place] [address] 2022-08-01 2022-08-01 Outpatient SFA SFA [id number] [place] 14:00:22 14:00:22 [id number] [facility] 2022-07-12 2022-07-12 Outpatient SFA SFA [place] 14:28:01 14:28:01 [id number] [facility] 2022-05-22 2022-05-22 Outpatient SFA SFA [place] 14:17:41 14:17:41 [id number] [facility] 2022-03-20 2022-03-20 Outpatient [id number] 00:00:00 00:00:00 Visit [id number] 2022-03-08 2022-03-08 Outpatient [id number] 00:00:00 00:00:00 Visit [id number] 2022-01-08 2022-01-09 Emergency TELLY Alejandro [id number] [facility] 22:31:00 01:30:00 Luis Randhawa [place] [id number] [id number] [id number] 3865-06-12 2022-01-09 Emergency TELLY Alejandro [id number] [facility] 22:31:00 01:30:00 Luis Randhawa [facility] [id number] [facility] .[id number] 2186-06-12 2022-01-08 Emergency 1 [facility] [id number] [place] 18:31:00 18:31:00 [facility] 2021-07-06 2021-07-06 Outpatient [facility] [address] [place] 04:35:00 04:35:00 _ANN 1208 [facility] 2018-03-04 2018-03-04 Emergency E KIMBERLY [facility] [id number] [facility] 19:43:00 21:10:00 [facility] Results Test Description Test Time Test Comments Results Result Comments Source CT/NG, NAAT, URINE 2022-03-10 10:01:57 Test Item Value Reference Range Interpretation Comme nts GONORRHEA, NAAT NEGATIVE NEGATIVE IMPORTA NT NOTICE: SEE ANNOUNCEMENT AT (test code = [email or web address] Note: 99259) Assay methodolo gy is nucleic acid amplification by transcriptio n mediated amplification (TMA) utilizing the A ptima Combo 2 Assay. CHLAMYDIA, NAAT NEGATIVE NEGATIVE IMPORTA NT NOTICE: SEE ANNOUNCEMENT AT (test code = [email or web address] Note: 62564) Assay methodolo gy is nucleic acid amplification by transcriptio n mediated amplification (TMA) utilizing the A ptima Combo 2 Assay. GC AND CHLAMYDIA, AMPLIFIED, [id number] 00:00:00 Test Item Value Reference Range Interpretation Comments GONORRHEA, NAAT (test code = 85311) NEGATIVE CHLAMYDIA, NAAT (test code = 10147) NEGATIVE GC AND CHLAMYDIA, AMPLIFIED, [id number] 00:00:00 Test Item Value Reference Range Interpretation Comments GONORRHEA, NAAT (test code = 27185) NEGATIVE CHLAMYDIA, NAAT (test code = 61919) NEGATIVE HEMOGLOBIN [id number] 07:55:22 Test Item Value Reference Range Interpretation Comments HEMOGLOBIN A1c (test code = 04410) 5.2 % 4.2-5.6 CBC W/AUTO DIFF WITH [id number] 06:43:03 Test Item Value Reference Range Interpretation [...] RBCS 0.00 K/UL 0.00-0.11 (test code = 39625) HIV 1/2 4TH GEN, RFLX [id number] 06:37:05 Test Item Value Reference Range Interpretation Comments HIV 1/2 4TH GEN, RFLX CONF (test NON-REACTIVE NON-REACTIVE code = 3514) HEPATITIS PANEL, [id number] 06:37:05 Test Item Value Reference Range Interpretation Comments HEPATITIS A IgM (test NON-REACTIVE NON-REACTIVE code = 93038) HEPATITIS B CORE IgM NON-REACTIVE NON-REACTIVE (test code = 4644) HEPATITIS B SURF AG NON-REACTIVE NON-REACTIVE (test code = 2739) HEPATITIS C ANTIBODY NON-REACTIVE NON-REACTIVE (test code = 4675) INTERPRETATION (NOTE) Hepatitis A HEPATITIS A: (test code sero logy shows no = 2552) evidence of acu te hepatitis A. INTERPRETATION (NOTE) Hepatitis B HEPATITIS B: (test code sero logy shows no = 59553) evidence of acu te hepatitis B and no indication of exposure to hepatitis B vir us in the previous cande eight months. INTERPRETATION (NOTE) Hepatitis C HEPATITIS C: (test code sero logy shows no = 39494) evidence of exposure to hepatitisC viru s at this time. I t can take up to 12 months after exposure tothe hepatitis C vir us for antibodies to become detectab le in the blood in certain patient s. COMPREHENSIVE METABOLIC [id number] 06:24:00 Test Item Value Reference Range Interpretation Comments GLUCOSE (test code = 101 MG/DL 70-99 H 2216) BUN (test code = 22 MG/DL 6-20 H 2207) CREATININE (test 0.85 MG/DL 0.60-1.30 code = 2214) eGFR (2020 CKD-EPI) 83 ML/MIN/1.73 >60 (test code = 93143) CALC BUN/CREAT (test 26 RATIO 6-28 code = 2235) SODIUM (test code = 138 MEQ/L [phone]) POTASSIUM (test code 4.7 MEQ/L 3.5-5.4 = 8) CHLORIDE (test code 104 MEQ/L 95-107 = 2215) CARBON DIOXIDE (test 20 MEQ/L 19-31 code = 2206) CALCIUM (test code = 11.5 MG/DL 8.5-10.5 H 2209) PROTEIN, TOTAL (test 7.4 G/DL 6.1-8.3 code = 2229) ALBUMIN (test code = 4.3 G/DL 3.5-5.2 2200) CALC GLOBULIN (test 3.1 G/DL 1.9-3.7 code = 2240) CALC A/G RATIO (test 1.4 RATIO 1.0-2.6 code = 2234) BILIRUBIN, TOTAL <0.2 MG/DL See_Comment [Automated message] (test code = 2207) The syste m which generated this result transmit zachariah reference range : <=1.2. The refe rence range was not u sed to interpret th is result as normal/abnormal . ALKALINE PHOSPHATASE 43 U/L 40-130 (test code = 220) AST (test code = 13 U/L 9-40 2217) ALT (test code = 6 U/L 5-40 2218) LIPID [id number] 06:24:00 Test Item Value Reference Range Interpretation [...] MOREINFORMATION , SEE CLIENT ANNOUNCE MENT AT [email or web address] RISK RATIO LDL/HDL 1.13 RATIO <3.22 (test code = 2238) [id number] 04:53:39 Test Item Value Reference Range Interpretation Comments RPR RESULT (test NON-REACTIVE NON-REACTIVE code = 3501) RPR TITER (test NOT INDIC. NOT INDIC. UNLESS OTHE RWISE code = 3500) TITER INDICATED, ALL TESTING PERFORMED [facility] [employer] [address] [place] [address], [place] [address] LABORATORY DIRE CTOR: MORENA LAL M.D. CLIA NUMBER [id number] [facility] [id number] COMPREHENSIVE METABOLIC [id number] 00:00:00 Test Item Value Reference Range Interpretation Comments GLUCOSE (test code = 2217) 101 MG/DL BUN (test code = 2208) 22 MG/DL CREATININE (test code = 2214) 0.85 MG/DL eGFR (2020 CKD-EPI) (test code 83 ML/MIN/1.73 = 50180) CALC BUN/CREAT (test code = 26 RATIO [...] code = 2219) 6 U/L COMPREHENSIVE METABOLIC [id number] 00:00:00 Test Item Value Reference Range Interpretation Comments GLUCOSE (test code = 2217) 101 MG/DL BUN (test code = 2208) 22 MG/DL CREATININE (test code = 2214) 0.85 MG/DL eGFR (2020 CKD-EPI) (test code 83 ML/MIN/1.73 = 54928) CALC BUN/CREAT (test code = 26 RATIO 2235) SODIUM (test code = 2231) 138 MEQ/L POTASSIUM (test code = 2228) 4.7 MEQ/L CHLORIDE (test code = 2215) 104 MEQ/L CARBON DIOXIDE (test code = 20 MEQ/L 220) CALCIUM (test code = 2209) 11.5 MG/DL [...] (test code = 2219) 6 U/L LIPID [id number] 00:00:00 Test Item Value Reference Range Interpretation Comments CHOLESTEROL (test code = 2210) 187 MG/DL TRIGLYCERIDES (test code = 2232) 109 MG/DL HDL CHOLESTEROL (test code = 2220) 78 MG/DL CALC LDL CHOL (test code = 2237) 88 MG/DL RISK RATIO LDL/HDL (test code = 1.13 RATIO 2238) LIPID [id number] 00:00:00 Test Item Value Reference Range Interpretation Comments CHOLESTEROL (test code = 2210) 187 MG/DL TRIGLYCERIDES (test code = 2232) 109 MG/DL HDL CHOLESTEROL (test code = 2220) 78 MG/DL CALC LDL CHOL (test code = 2237) 88 MG/DL RISK RATIO LDL/HDL (test code = 1.13 RATIO 2238) HEMOGLOBIN [id number] 00:00:00 Test Item Value Reference Range Interpretation Comments HEMOGLOBIN A1c (test code = 09418) 5.2 % HEMOGLOBIN [id number] 00:00:00 Test Item Value Reference Range Interpretation Comments HEMOGLOBIN A1c (test code = 89908) 5.2 % HEMOGLOBIN [id number] 00:00:00 Test Item Value Reference Range Interpretation Comments HEMOGLOBIN A1c (test code = 81902) 5.2 % CBC W/AUTO [id number] 00:00:00 Test Item Value Reference Range Interpretation [...] NUCLEATED RBCS (test code = 0.00 K/UL 92044) CBC W/AUTO [id number] 00:00:00 Test Item Value Reference Range Interpretation [...] NUCLEATED RBCS (test code = 0.00 K/UL 76984) CBC W/AUTO [id number] 00:00:00 Test Item Value Reference Range Interpretation [...] NUCLEATED RBCS (test code = 0.00 K/UL 35241) HIV AB/AG COMBO RFLX [id number] 00:00:00 Test Item Value Reference Range Interpretation Comments HIV 1/2 4TH GEN, RFLX CONF (test NON-REACTIVE code = 3514) HIV AB/AG COMBO RFLX [id number] 00:00:00 Test Item Value Reference Range Interpretation Comments HIV 1/2 4TH GEN, RFLX CONF (test NON-REACTIVE code = 3514) ACUTE HEPATITIS [id number] 00:00:00 Test Item Value Reference Range Interpretation Comments HEPATITIS A IgM (test code = NON-REACTIVE 91695) HEPATITIS B CORE IgM (test code NON-REACTIVE = 4644) HEPATITIS B SURF AG (test code = NON-REACTIVE 2739) HEPATITIS C ANTIBODY (test code NON-REACTIVE = 4675) INTERPRETATION HEPATITIS A: (NOTE) (test code = 2552) INTERPRETATION HEPATITIS B: (NOTE) (test code = 71863) INTERPRETATION HEPATITIS C: (NOTE) (test code = 32609) ACUTE HEPATITIS [id number] 00:00:00 Test Item Value Reference Range Interpretation Comments HEPATITIS A IgM (test code = NON-REACTIVE 17083) HEPATITIS B CORE IgM (test code NON-REACTIVE = 4644) HEPATITIS B SURF AG (test code = NON-REACTIVE 2739) HEPATITIS C ANTIBODY (test code NON-REACTIVE = 4675) INTERPRETATION HEPATITIS A: (NOTE) (test code = 2552) INTERPRETATION HEPATITIS B: (NOTE) (test code = 52245) INTERPRETATION HEPATITIS C: (NOTE) (test code = 38673) [id number] 00:00:00 Test Item Value Reference Range Interpretation Comments RPR RESULT (test code = NON-REACTIVE 3501) RPR TITER (test code = 3500) NOT INDIC. TITER [id number] 00:00:00 Test Item Value Reference Range Interpretation Comments RPR RESULT (test code = NON-REACTIVE 3501) RPR TITER (test code = 3500) NOT INDIC. TITER [id number] 00:00:00 Test Item Value Reference Range Interpretation Comments RPR RESULT (test code = NON-REACTIVE 3501) RPR TITER (test code = 3500) NOT INDIC. TITER HIV 1+2 Ab+HIV1 p24 Ag SerPl Ql [id number] 20:29:29 Test Item Value Reference Range Interpretation Comments HIV 1+2 Ab+HIV1 p24 Ag SerPl Ql IA NEGATIVE Negative (test code = 16443-5) HHSDRUGS OF [id number] 20:57:00 Test Item Value Reference Range Interpretation [...] Barbiturates 200 ng/mL Opiates 2000 ng/mL CARDIAC [id number] 20:56:00 Test Item Value Reference Range Interpretation Comments TROPONIN I (test code = A84) 0.016 ng/mL 0.000-0.045 CKMB (test code = A49) 4.6 ng/mL <=3.6 HH CPK (test code = 32A) 150 IU/L 26-192 URINALYSIS WITH [id number] 20:51:00 Test Item Value Reference Range Interpretation [...] (test code = USPERM) /HPF NONE URINE [id number] 20:46:00 Test Item Value Reference Range Interpretation Comments PREG UR (test code = PGU) NEGATIVE NEGATIVE [id number] 20:42:00 Test Item Value Reference Range Interpretation Comments ACETAMINPH (test code = 94M) <2.0 ug/mL 10.0-30.0 L ALCOHOL BLOOD (ETOH)2018-03-04 20:41:00 Test Item Value Reference Range Interpretation Comments ETOH (test code = HALC) ETHANOL The result is to be used only for medical purposes ALCOHOL (test code = <10 mg/dL <=10 56A) [id number] 20:40:00 Test Item Value Reference Range Interpretation Comments SALICYLATE (test code = 94B) <1.7 mg/dL 2.8-20.0 L [id number] 20:39:00 Test Item Value Reference Range Interpretation Comments MAGNESIUM (test code = 48A) 1.7 mg/dL 1.8-2.4 L BASIC METABOLIC [id number] 20:39:00 Test Item Value Reference Range Interpretation [...] 10.5 mg/dL 8.3-9.[address] HEAD W/O [id number] 20:34:18Location [id number] CT BRAINHistory: Altered mental statusCOMPARISON: None availableTECHNIQUE [...] of acute intracranial process.XR CHEST 1 VIEW [id number] 20:23:82E9XZJH OF STUDY: 03/04/2018 7:52 PM REASON FOR [...] differe nt from the original. Merary Gunn [facility] 01:29:00-00:00 Pt has been cleared for [...] note is different from the or iginal. [facility] 23:22:59-00:00 System History Chief Complaint Patient [...] note revi ewed. Exam conducted with a pharmacy district manager present (Merary Gunn RN). Constitutional: General: She [...] (who agrees w/ assessmen t and plan) Harish Alejandro Plan: 1. Labs 2. UA, Upreg, 3. [...] er CBC/Diff. Procedure Abnormality Status --------- ------ CBC/Diff[[id number]] Abnormal Final result Please view results for these tests on the [facility] idSwagsy orders. URINALYSIS Narrative: The following orders were created for panel ord er Urinalysis. Procedure Abnormality Status --------- ------ Urinalysis[[id number]] Abnormal Final result Please view results for these tests on the [facility] idual orders. No orders to display Medications [...] discussed the patient's care with the PA/ WIRE WRAPPER MACHINE OPERATOR and I agree with the plan. Clinical Impression: 1. Dysuria Luis Alejandro Jr., MD 01/10/22 8:30 AM 2022-01-08 [facility] 22:32:00-00:00 Pt received ambulatory with steady [...] is different fro m the original. Physician Inventory Control/Shipping Receiving [facility] 18:36:42-00:00 MEDICAL SCREENING EXAMINATION PROVIDER NOTE [...] anxious in tri age, states staying at [facility] and is not allowed to take her [...] Vasquez was instruct ed to alert the brush washer if there are any changes or new concerns. Returned to waiting room. Stable. BECKY Owens January 08, 2022 6:36 PM BECKY Owens-C #[id number] Emergency Medicine Chrissie Escobedo PA 01/08/22 1838 Electronically signed by Chrissie Escobedo PA at 0 01/08/2022 6:38 PM CDT 2022-01-08 [facility] 18:36:29-00:00 Pt is in NAD, AAOX4, respirations even and unlab ored. System
[2022-12-21 13:24] LABS: Albumin 3.7 g/dL (3.4-5.0); Bilirubin Total 0.2 mg/dL (0.2-1.0); Potassium 3.6 mEq/L (3.5-5.1); Protein, Total 7.7 g/dL (6.4-8.2)
--- NOTE | 2022-12-21 14:17 | EDPHYS ---
Physician Documentation [facility] Name: Kandice Tee Age: 52 yrs Sex: Female : 1970 Arrival Date: 12/21/2022 Time: 12:15 Bed 14 Private MD: ED Physician Lalo Maguire HPI: 12/21 12:30 This 52 yrs old Black Female presents to ER via EMS with complaints of Abdominal Pain. bs3 12:30 52-year-old female history of paranoid schizophrenia currently not taking her bs3 medications was seen 1 week ago for abdominal pain with a negative work-up including a CT which was normal presents with persistent pain and vomiting she states that she has not eaten or drink anything since last time that she was here she states that when they read the instructions said that something was poison inside of her system she endorses that she cannot eat but says that she did have soup this morning denies any fevers chills chest pain shortness of breath any lower abdominal pain she does smoke as well. Historical: - Allergies: 12:22 No Known Allergies; vg1 - Home Meds: 12:22 None [Active]; vg1 - PMHx: 12:22 Paranoid Schizophrenia; vg1 - PSHx: 12:22 None; vg1 - Immunization history:: Client reports receiving the 2nd dose of the Covid vaccine. - Social history:: Smoking status: Patient reports the use of cigarette tobacco products, 4/day. ROS: 12:30 Constitutional: Negative for fever, chills bs3 12:30 All other systems are negative. Exam: 12:30 Constitutional: This is a well developed, well nourished patient who is awake, alert, bs3 and is dry heaving she states that she threw up and there was a small amount of clear sputum on the floor. Head/Face: Normocephalic, atraumatic. Eyes: Pupils equal round and reactive to light, extra-ocular motions intact. Lids and lashes normal. ENT: mmm, no posterior phyarngeal erythema Neck: Trachea midline, no thyromegaly, no neck stiffness Chest/axilla: Normal chest wall appearance and motion. Nontender with no deformity. No lesions are appreciated. Cardiovascular: Regular rate and rhythm with a normal S1 and S2. symmetric pulses in upper extremities Respiratory: Lungs have equal breath sounds bilaterally, clear to auscultation, no respiratory distress Abdomen/GI: Soft, non-tender, no rebound or guarding, to very light touch patient has severe tenderness but it is distractible MS/ Extremity: Pulses equal, no cyanosis. Neurovascular intact. Full, normal range of motion. Neuro: Awake and alert, GCS 15, oriented to person, place, time, and situation. Cranial nerves II-XII grossly intact. Motor strength 5/5 in all extremities. Sensory grossly intact. Psych: Patient appears slightly distressed Vital Signs: 12:14 BP 111 / 60; Pulse 67; Resp 16; Temp 98.3(O); Pulse Ox 100% on R/A; Weight 79.83 kg; vg1 Height 5 ft. 7 in. ; Pain 10/10; 13:30 BP 119 / 76; Pulse 84; Resp 16; Pulse Ox 98% on R/A; vg1 12:14 Body Mass Index 27.56 (79.83 kg, 170.18 cm) vg1 12:14 Pain Scale: Adult vg1 MDM: 12:24 Patient medically screened. bs3 12:30 Data reviewed: vital signs, nurses notes. ED course: Patient had a recent CT which was bs3 completely normal her exam is distractible she is not taking her psychiatric medications we will trial haloperidol Zofran Toradol and Pepcid for her pain I do not suspect acute GI bleed perforation or colitis she has no right upper quadrant pain to indicate Colelithiasis EKG is normal sinus rhythm at [address] elevations or depressions QTc 383as interpreted by myself. 14:15 ED course: Work-up negative patient with no additional vomiting here her abdomen is bs3 soft nontender advised outpatient follow-up with gastroenterology. 12/21 12:30 Order name: CBC with Diff; Complete Time: 13:32 bs3 12/21 12:30 Order name: CMP; Complete Time: 13:32 bs3 12/21 12:30 Order name: Lipase; Complete Time: 13:32 bs3 12/21 12:26 Order name: EKG - Nurse/Tech; Complete Time: 12:35 vg1 12/21 12:30 Order name: IV Saline Lock; Complete Time: 12:48 bs3 12/21 12:30 Order name: Labs collected and sent; Complete Time: 12:48 bs3 Administered Medications: 12:45 Drug: HALdol (as decanoate) IM 5 mg Route: IM; Site: left deltoid; vg1 14:03 Follow up: Response: No adverse reaction vg1 12:46 Drug: NS 0.9% IV 1000 ml Route: IV; Rate: 1 bolus; Site: right antecubital; vg1 14:42 Follow up: IV Status: Completed infusion; IV Intake: 1000ml vg1 12:46 Drug: Ondansetron IVP 4 mg Route: IVP; Site: right antecubital; vg1 14:03 Follow up: Response: No adverse reaction; No change in condition vg1 12:48 Drug: Famotidine IVP 20 mg Route: IVP; Site: right antecubital; vg1 14:03 Follow up: Response: No adverse reaction; No change in condition vg1 12:50 Drug: TORadol - Ketorolac IVP 15 mg Route: IVP; Site: right antecubital; vg1 14:03 Follow up: Response: No adverse reaction; No change in condition vg1 Disposition Summary: 12/21/22 14:16 Discharge Ordered Location: Home bs3 Problem: new bs3 Symptoms: have improved bs3 Condition: Stable bs3 Diagnosis - Nausea with vomiting, unspecified bs3 Followup: bs3 - With: Private Physician - When: 5 - 6 days - Reason: Discharge Instructions: - Discharge Summary Sheet bs3 - Nausea and Vomiting, Adult bs3 Forms: - Medication Reconciliation Form bs3 - Thank You Letter bs3 - Antibiotic Education bs3 - Prescription Opioid Use bs3 Prescriptions: - Carafate 1 gram Oral Tablet - take 1 tablet by ORAL route 4 times per day take on an empty stomach, beginning bs3 on waking and last dose at bedtime; 100 tablet; Refills: 0, Product Selection Permitted - Reglan 10 mg Oral Tablet - take 1 tablet by ORAL route every 6 hours take 30 minutes before meals and at bs3 bedtime; 20 tablet; Refills: 0, Product Selection Permitted - Pepcid 20 mg Oral Tablet - take 1 tablet by ORAL route once daily for 10 days; 10 tablet; Refills: 0, bs3 Product Selection Permitted Signatures: Dispatcher [employer] Cony Tran RN RN vg1 Lalo Maguire MD MD bs3
--- NOTE | 2022-12-21 14:17 | ER ---
Nurse's Notes [facility] Name: Kandice Tee Age: 52 yrs Sex: Female : 1970 Arrival Date: 12/21/2022 Time: 12:15 Bed 14 Private MD: Diagnosis: Nausea with vomiting, unspecified Presentation: 12/21 12:14 Method Of Arrival: EMS: [facility] vg1 12:14 Chief complaint: EMS states: was seen in ED six days ago for similar reason, pt c/o vg1 generalized ABD pain, more pain in the RUQ with N/V/D. Coronavirus screen: Vaccine status: Patient reports receiving the 2nd dose of the covid vaccine. Client denies travel out of the [place] in the last 14 days. Ebola Screen: Patient negative for fever greater than or equal to 101.5 degrees Fahrenheit, and additional compatible Ebola Virus Disease symptoms Patient denies exposure to infectious person. Patient denies travel to an Ebola-affected area in the 21 days before illness onset. Initial Sepsis Screen: Does the patient meet any 2 criteria? No. Patient's initial sepsis screen is negative. Does the patient have a suspected source of infection? No. Patient's initial sepsis screen is negative. Risk Assessment: Do you want to hurt yourself or someone else? Patient reports no desire to harm self or others. Onset of symptoms was December 15, 2022. 12:14 Acuity: SHYANNE 3 vg1 Triage Assessment: 12:14 General: Appears uncomfortable, Behavior is cooperative. Pain: Complains of pain in vg1 abdomen Pain currently is 10 out of 10 on a pain scale. Neuro: Level of Consciousness is awake, alert, obeys commands, Oriented to person, place, time, situation. Cardiovascular: Patient's skin is warm and dry. Respiratory: Airway is patent Respiratory effort is even, unlabored. GI: Abdomen is flat, Reports diarrhea, nausea, vomiting. : No signs and/or symptoms were reported regarding the genitourinary system. Derm: Skin is pink, warm \T\ dry. Musculoskeletal: Circulation, motion, and sensation intact. Historical: - Allergies: 12:22 No Known Allergies; vg1 - Home Meds: 12:22 None [Active]; vg1 - PMHx: 12:22 Paranoid Schizophrenia; vg1 - PSHx: 12:22 None; vg1 - Immunization history:: Client reports receiving the 2nd dose of the Covid vaccine. - Social history:: Smoking status: Patient reports the use of cigarette tobacco products, 4/day. Screenin:24 [facility] ED Fall Risk Assessment (Adult) History of falling in the last 3 months, vg1 including since admission No falls in past 3 months (0 pts) Confusion or Disorientation No (0 pts) Intoxicated or Sedated No (0 pts) Impaired Gait No (0 pts) Mobility Assist Device Used No (0 pt) Altered Elimination No (0 pt) Score/Fall Risk Level 0 - 2 = Low Risk Oriented to surroundings, Maintained a safe environment, Educated pt \T\ family on fall prevention, incl call for assistance when getting out of bed, Assessed \T\ reinforced patient's understanding of fall precautions. Abuse screen: Denies threats or abuse. Denies injuries from another. Nutritional screening: No deficits noted. Tuberculosis screening: No symptoms or risk factors identified. Assessment: 12:14 Reassessment: SEE TRIAGE. vg1 13:13 Reassessment: Patient appears in no apparent distress at this time. No changes from vg1 previously documented assessment. Patient and/or family updated on plan of care and expected duration. Pain level reassessed. Patient is alert, oriented x 3, equal unlabored respirations, skin warm/dry/pink. 14:04 Reassessment: Patient appears in no apparent distress at this time. No changes from vg1 previously documented assessment. Patient and/or family updated on plan of care and expected duration. Pain level reassessed. Patient is alert, oriented x 3, equal unlabored respirations, skin warm/dry/pink. 14:24 Reassessment: Pt stated feeling better and requesting food and beverage; provider vg1 notified. Pt given sandwich and apple juice. 14:42 Reassessment: Pt ate half a sandwich and finished apple juice. pt denies ABD pain. vg1 Vital Signs: 12:14 BP 111 / 60; Pulse 67; Resp 16; Temp 98.3(O); Pulse Ox 100% on R/A; Weight 79.83 kg; vg1 Height 5 ft. 7 in. ; Pain 10/10; 13:30 BP 119 / 76; Pulse 84; Resp 16; Pulse Ox 98% on R/A; vg1 12:14 Body Mass Index 27.56 (79.83 kg, 170.18 cm) vg1 12:14 Pain Scale: Adult vg1 ED Course: 12:14 Arm band placed on. vg1 12:20 Patient arrived in ED. vg1 12:22 Triage completed. vg1 12:24 Lalo Maguire MD is Attending Physician. bs3 12:24 Patient has correct armband on for positive identification. Bed in low position. Call vg1 light in reach. Side rails up X 1. 12:25 Cony Couch, RN is Primary Nurse. vg1 12:48 CBC with Diff Sent. em1 12:48 CMP Sent. em1 12:48 Lipase Sent. em1 12:48 Initial lab(s) drawn, by ct, sent to lab. Inserted saline lock: 20 gauge in right em1 antecubital area, using aseptic technique. Blood collected. 14:43 No provider procedures requiring assistance completed. IV discontinued, intact, vg1 bleeding controlled, No redness/swelling at site. Pressure dressing applied. Administered Medications: 12:45 Drug: HALdol (as decanoate) IM 5 mg Route: IM; Site: left deltoid; vg1 14:03 Follow up: Response: No adverse reaction vg1 12:46 Drug: NS 0.9% IV 1000 ml Route: IV; Rate: 1 bolus; Site: right antecubital; vg1 14:42 Follow up: IV Status: Completed infusion; IV Intake: 1000ml vg1 12:46 Drug: Ondansetron IVP 4 mg Route: IVP; Site: right antecubital; vg1 14:03 Follow up: Response: No adverse reaction; No change in condition vg1 12:48 Drug: Famotidine IVP 20 mg Route: IVP; Site: right antecubital; vg1 14:03 Follow up: Response: No adverse reaction; No change in condition vg1 12:50 Drug: TORadol - Ketorolac IVP 15 mg Route: IVP; Site: right antecubital; vg1 14:03 Follow up: Response: No adverse reaction; No change in condition vg1 Medication: 14:43 VIS not applicable for this client. vg1 Intake: 14:42 IV: 1000ml; Total: 1000ml. vg1 Outcome: 14:16 Discharge ordered by . bs3 14:42 Discharged to home ambulatory. vg1 14:42 Condition: good 14:42 Discharge instructions given to patient, Instructed on discharge instructions, follow up and referral plans. medication usage, Demonstrated understanding of instructions, follow-up care, medications, Prescriptions given X 3. 14:43 Patient left the ED. vg1 Signatures: Christiano Del Rosario em1 Cony Couch, RN RN vg1 Lalo Maguire MD MD bs3 Corrections: (The following items were deleted from the chart) 12:24 12:14 BP 116 / 0; Pulse 67bpm; Resp 16bpm; Pulse Ox 100% RA; Temp 98.3F Oral; 79.83 kg; vg1 Height 5 ft. 7 in.; BMI: 27.5; Pain 10/10, Adult; vg1
[2022-12-21 14:53] VITALS: BP 119/76; O2SAT 98
== END 2022-12-21 14:43 | disposition home or self-care (01) ==
LOC: ER 12:15
DX: R11.2 Nausea with vomiting, unspecified (principal); F17.210 Nicotine dependence, cigarettes, uncomplicated; F20.0 Paranoid schizophrenia
CPT/HCPCS: 96361; 85025; 36415; 83690; 80053; 96375; 96372; 96374; 99284; J1630; J2405; J7030

== ENCOUNTER 2023-01-25 14:12 | Emergency (ER) | payer OTHER ==
--- OUTSIDE RECORDS SUMMARY | 2023-01-25 14:18 | XMS REPORT | Continuity of Care Document ---
:1970 Author Organization [facility] t Address [address] [facility] [address] [place] [address] Care Team Providers Name Role Phone Samantha Beasley Primary Care Physician [phone] Problems This patient has no known problems. Allergies, Adverse Reactions, Alerts This patient has no known allergies or adverse reactions. Medications Ordered Filled Start Stop Current Ordering Indication Dosage Frequency Signature Comments Components Source Medication Medication Date Date Medication? Clinician (SIG) Name Name BENZTROPINE 2021-0 No MESYLATE 1 9-26 MG TABS 00:00: 00 TAKE ONE 2021-0 No (1) TABLET 8-29 BY MOUTH 00:00: EVERY 00 EVENING BENZTROPINE 2-0 No 1 MESYLATE 1 8-17 MG TABS 00:00: 00 DIVALPROEX 2-0 No 500 SODIUM ER 8-17 500 MG TB24 00:00: 00 Vital Signs Vital Name Observation Time Observation Value Comments Source BP Systolic 2022-03-08 15:27:00 102 mm[Hg] BP Diastolic 2022-03-08 15:27:00 64 mm[Hg] Weight Measured 2022-03-08 15:27:00 154.00 pounds Height Measured 2022-03-08 15:27:00 68.00 inches Body Temperature 2022-03-08 15:27:00 97.40 degrees Heart Rate 2022-03-08 15:27:00 90.00 /min Respiratory Rate 2022-03-08 15:27:00 Procedures This patient has no known procedures. Plan of Care Planned Activity Planned Date Details Comments Source Goal Plan of Care Note [code = 48288-4] Goal Plan of Care Note [code = 24164-0] Goal Plan of Care Note [code = 40230-7] Goal Plan of Care Note [code = 35327-8] Goal Plan of Care Note [code = 68551-2] Goal Plan of Care Note [code = 99691-0] Goal Plan of Care Note [code = 58132-1] Goal Plan of Care Note [code = 39154-7] Goal Plan of Care Note [code = 24712-0] Goal Plan of Care Note [code = 57176-4] Goal Plan of Care Note [code = 46713-0] Goal Plan of Care Note [code = 57658-3] Encounters Start End Encounter Admission Attending Care Care Encounter Source Date/Time Date/Time Type Type Clinicians Facility Department ID 2023-01-25 2023-01-25 Outpatient SFA SFA [id number] [facility] 13:07:12 13:07:12 [id number] F Mohit 2022-08-31 2022-08-31 Outpatient SFA S[facility] 14:15:54 14:15:54 [id number] F Mcgregor 2022-08-08 2022-08-08 Outpatient SFA SFA [facility] 13:33:27 13:33:27 [id number] F Mcgregor 2022-08-01 2022-08-01 Outpatient SFA SFA [facility] 14:00:22 14:00:22 [id number] F Mcgregor 2022-07-12 2022-07-12 Outpatient SFA SFA [facility] 14:28:01 14:28:01 [id number] F Mcgregor 2022-05-22 2022-05-22 Outpatient SFA SFA [facility] 14:17:41 14:17:41 [id number] [facility] 2022-03-20 2022-03-20 Outpatient [id number] 00:00:00 00:00:00 Visit [id number] 2022-03-08 2022-03-08 Outpatient [id number] 00:00:00 00:00:00 Visit [id number] Results Test Description Test Time Test Comments Results Result Comments Source GC AND CHLAMYDIA, AMPLIFIED, URINE 2022-03-10 00:00:00 Test Item Value Reference Range Interpretation Comme nts GONORRHEA, NAAT (test code = 64491) NEGATIVE CHLAMYDIA, NAAT (test code = 47677) NEGATIVE GC AND CHLAMYDIA, AMPLIFIED, [id number] 00:00:00 Test Item Value Reference Range Interpretation Comments GONORRHEA, NAAT (test code = 61913) NEGATIVE CHLAMYDIA, NAAT (test code = 28997) NEGATIVE COMPREHENSIVE METABOLIC [id number] 00:00:00 Test Item Value Reference Range Interpretation Comments GLUCOSE (test code = 2217) 101 MG/DL BUN (test code = 2208) 22 MG/DL CREATININE (test code = 2214) 0.85 MG/DL eGFR (2020 CKD-EPI) (test code 83 ML/MIN/1.73 = 51060) CALC BUN/CREAT (test code = 26 RATIO [...] code = 2219) 6 U/L COMPREHENSIVE METABOLIC [id number] 00:00:00 Test Item Value Reference Range Interpretation Comments GLUCOSE (test code = 2217) 101 MG/DL BUN (test code = 2208) 22 MG/DL CREATININE (test code = 2214) 0.85 MG/DL eGFR (2020 CKD-EPI) (test code 83 ML/MIN/1.73 = 40076) CALC BUN/CREAT (test code = 26 RATIO [...] (test code = 2219) 6 U/L LIPID [id number] 00:00:00 Test Item Value Reference Range Interpretation Comments CHOLESTEROL (test code = 2210) 187 MG/DL TRIGLYCERIDES (test code = 2232) 109 MG/DL HDL CHOLESTEROL (test code = 2220) 78 MG/DL CALC LDL CHOL (test code = 2237) 88 MG/DL RISK RATIO LDL/HDL (test code = 1.13 RATIO 2238) LIPID [id number] 00:00:00 Test Item Value Reference Range Interpretation Comments CHOLESTEROL (test code = 2210) 187 MG/DL TRIGLYCERIDES (test code = 2232) 109 MG/DL HDL CHOLESTEROL (test code = 2220) 78 MG/DL CALC LDL CHOL (test code = 2237) 88 MG/DL RISK RATIO LDL/HDL (test code = 1.13 RATIO 2238) HEMOGLOBIN [id number] 00:00:00 Test Item Value Reference Range Interpretation Comments HEMOGLOBIN A1c (test code = 32986) 5.2 % HEMOGLOBIN [id number] 00:00:00 Test Item Value Reference Range Interpretation Comments HEMOGLOBIN A1c (test code = 46064) 5.2 % HEMOGLOBIN [id number] 00:00:00 Test Item Value Reference Range Interpretation Comments HEMOGLOBIN A1c (test code = 28441) 5.2 % CBC W/AUTO [id number] 00:00:00 Test Item Value Reference Range Interpretation [...] NUCLEATED RBCS (test code = 0.00 K/UL 63670) CBC W/AUTO [id number] 00:00:00 Test Item Value Reference Range Interpretation [...] NUCLEATED RBCS (test code = 0.00 K/UL 86275) CBC W/AUTO [id number] 00:00:00 Test Item Value Reference Range Interpretation [...] NUCLEATED RBCS (test code = 0.00 K/UL 30165) HIV AB/AG COMBO RFLX [id number] 00:00:00 Test Item Value Reference Range Interpretation Comments HIV 1/2 4TH GEN, RFLX CONF (test NON-REACTIVE code = 3514) HIV AB/AG COMBO RFLX [id number] 00:00:00 Test Item Value Reference Range Interpretation Comments HIV 1/2 4TH GEN, RFLX CONF (test NON-REACTIVE code = 3514) ACUTE HEPATITIS [id number] 00:00:00 Test Item Value Reference Range Interpretation Comments HEPATITIS A IgM (test code = NON-REACTIVE 94171) HEPATITIS B CORE IgM (test code NON-REACTIVE = 4644) HEPATITIS B SURF AG (test code = NON-REACTIVE 2739) HEPATITIS C ANTIBODY (test code NON-REACTIVE = 4675) INTERPRETATION HEPATITIS A: (NOTE) (test code = 2552) INTERPRETATION HEPATITIS B: (NOTE) (test code = 36539) INTERPRETATION HEPATITIS C: (NOTE) (test code = 61427) ACUTE HEPATITIS [id number] 00:00:00 Test Item Value Reference Range Interpretation Comments HEPATITIS A IgM (test code = NON-REACTIVE 83418) HEPATITIS B CORE IgM (test code NON-REACTIVE = 4644) HEPATITIS B SURF AG (test code = NON-REACTIVE 2739) HEPATITIS C ANTIBODY (test code NON-REACTIVE = 4675) INTERPRETATION HEPATITIS A: (NOTE) (test code = 2552) INTERPRETATION HEPATITIS B: (NOTE) (test code = 54290) INTERPRETATION HEPATITIS C: (NOTE) (test code = 45397) [id number] 00:00:00 Test Item Value Reference Range Interpretation Comments RPR RESULT (test code = NON-REACTIVE 3501) RPR TITER (test code = 3500) NOT INDIC. TITER [id number] 00:00:00 Test Item Value Reference Range Interpretation Comments RPR RESULT (test code = NON-REACTIVE 3501) RPR TITER (test code = 3500) NOT INDIC. TITER [id number] 00:00:00 Test Item Value Reference Range Interpretation Comments RPR RESULT (test code = NON-REACTIVE 3501) RPR TITER (test code = 3500) NOT INDIC. TITER
[2023-01-25] MEDS ORDERED: dexAMETHasone 10 MG/ML VIAL ONE (14:37)
[2023-01-25] MEDS ORDERED: ACETAMINOPHEN 500 MG TAB ONE (14:37)
[2023-01-25] MEDS ORDERED: KETOROLAC 30 MG/ML INJ ONE (14:37)
[2023-01-25] MEDS ORDERED: NA CHLORIDE 0.9% 1,000 ML ONE (14:37)
[2023-01-25] MEDS ORDERED: METOCLOPRAMIDE 10 MG/2mL INJ ONE (14:37)
--- NOTE | 2023-01-25 15:35 | RAD REPORT ---
EXAM DESCRIPTION: CT - Head Brain Wo Cont - 01/25/2023 2:43 pm CLINICAL HISTORY: GALVAN, worsening COMPARISON: No comparisons TECHNIQUE: Noncontrast head CT images were obtained without IV contrast. Multiplanar reformats were generated and reviewed. All CT scans are performed using dose optimization technique as appropriate and may include automated exposure control or mA/KV adjustment according to patient size. FINDINGS: No intracranial hemorrhage, mass, or edema. Midline structures are unremarkable. Normal ventricular caliber for age. Esparza-white matter differentiation is preserved, without evidence of acute infarct. No abnormal extra- axial fluid collections. Mastoid air cells and visualized portions of the paranasal sinuses are clear. No acute bony findings. IMPRESSION: No evidence of an acute intracranial process.
--- NOTE | 2023-01-25 15:41 | ER ---
Nurse's Notes [facility] Name: Kandice Tee Age: 52 yrs Sex: Female : 1970 Arrival Date: 01/25/2023 Time: 14:12 Bed 12 Private MD: Diagnosis: Headache Presentation: 01/25 14:21 Chief complaint: EMS states: pt reports headache x 2 weeks. worse yesterday and today. kc6 Coronavirus screen: At this time, the client does not indicate any symptoms associated with coronavirus-19. Ebola Screen: No symptoms or risks identified at this time. Initial Sepsis Screen: Does the patient meet any 2 criteria? No. Patient's initial sepsis screen is negative. Does the patient have a suspected source of infection? No. Patient's initial sepsis screen is negative. Risk Assessment: Do you want to hurt yourself or someone else? Patient reports no desire to harm self or others. Onset of symptoms was January 25, 2023. 14:21 Method Of Arrival: EMS: [facility] kc6 14:21 Acuity: SHYANNE 4 kc6 Triage Assessment: 14:22 Headache History: The patient has had previous headaches and this one is more severe kc6 than previous episodes. General: Appears in no apparent distress. comfortable, Behavior is calm, cooperative, appropriate for age. Pain: Complains of pain in "headache" Pain radiates to jaw Pain currently is 10 out of 10 on a pain scale. Quality of pain is described as throbbing, Pain began 2 weeks ago Is continuous, Also complains of no other associated symptoms. EENT: No signs and/or symptoms were reported regarding the EENT system. Neuro: Barrett Agitation-Sedation Scale (RASS): 0 - Alert and Calm Level of Consciousness is awake, alert, obeys commands, Oriented to person, place, time, situation, Appropriate for age. Cardiovascular: Capillary refill < 3 seconds. Respiratory: Airway is patent Trachea midline Respiratory effort is even, unlabored, Respiratory pattern is regular, symmetrical. GI: No signs and/or symptoms were reported involving the gastrointestinal system. : No signs and/or symptoms were reported regarding the genitourinary system. Derm: No signs and/or symptoms reported regarding the dermatologic system. Skin is intact, Skin is pink, warm \\T\\ dry. Musculoskeletal: No signs and/or symptoms reported regarding the musculoskeletal system. Circulation, motion, and sensation intact. Capillary refill < 3 seconds, Range of motion: intact in all extremities. Historical: - Allergies: 14:22 No Known Allergies; kc6 - PMHx: 14:22 Paranoid Schizophrenia; kc6 - PSHx: 14:22 None; kc6 - Immunization history:: Client reports receiving the 2nd dose of the Covid vaccine, Flu vaccine is up to date. - Social history:: Smoking status: Patient reports the use of cigarette tobacco products, smokes one-half pack cigarettes per day. Screenin:24 [facility] ED Fall Risk Assessment (Adult) History of falling in the last 3 months, kc6 including since admission No falls in past 3 months (0 pts) Confusion or Disorientation No (0 pts) Intoxicated or Sedated No (0 pts) Impaired Gait No (0 pts) Mobility Assist Device Used No (0 pt) Altered Elimination No (0 pt) Score/Fall Risk Level 0 - 2 = Low Risk Oriented to surroundings, Maintained a safe environment, Educated pt \\T\\ family on fall prevention, incl call for assistance when getting out of bed, Assessed \\T\\ reinforced patient's understanding of fall precautions, Hourly rounding (assess needs \\T\\ fall precautionary measures) done. Abuse screen: Denies threats or abuse. Denies injuries from another. Nutritional screening: No deficits noted. Tuberculosis screening: No symptoms or risk factors identified. Assessment: 14:24 Reassessment: please see triage assessment. kc6 Vital Signs: 14:21 BP 118 / 71; Pulse 89; Resp 18 S; Temp 98.9(O); Pulse Ox 98% on R/A; Weight 77.11 kg kc6 (R); Height 5 ft. 7 in. (R); Pain 10/10; 14:21 Body Mass Index 26.63 (77.11 kg, 170.18 cm) kc6 14:21 Pain Scale: Adult kc ED Course: 14:17 Patient arrived in ED. kc6 14:17 Isaiah Baez MD is Attending Physician. jr11 14:21 Rgeina Woods, KENN is Primary Nurse. kc6 14:22 Triage completed. kc6 14:22 Arm band placed on. kc6 14:24 Patient has correct armband on for positive identification. Bed in low position. Call kc6 light in reach. Side rails up X2. 14:38 Strep Sent. kc6 14:45 CT Head Brain wo Cont In Process Unspecified. EDMS 16:00 IV discontinued, intact, bleeding controlled, No redness/swelling at site. Pressure kc6 dressing applied. 16:00 No provider procedures requiring assistance completed. kc6 Administered Medications: 14:38 Drug: NS 0.9% IV 1000 ml Route: IV; Rate: 125 ml/hr; Site: right antecubital; kc6 15:59 Follow up: IV Status: Completed infusion kc6 14:38 Drug: Acetaminophen PO 1000 mg Route: PO; kc6 15:59 Follow up: Response: No adverse reaction; Pain is decreased kc6 14:38 Drug: Ketorolac IVP 15 mg Route: IVP; Site: right antecubital; kc6 15:59 Follow up: Response: No adverse reaction; Pain is decreased kc6 14:38 Drug: Dexamethasone IVP 10 mg Route: IVP; Site: right antecubital; kc6 15:59 Follow up: Response: No adverse reaction kc6 14:38 Drug: metoCLOPramide IVP 10 mg Route: IVP; Site: right antecubital; kc6 15:59 Follow up: Response: No adverse reaction kc6 Medication: 16:00 VIS not applicable for this client. kc6 Outcome: 15:40 Discharge ordered by MD. stone 16:00 Discharged to home via community bus kc6 16:00 Condition: improved 16:00 Discharge instructions given to patient, Instructed on discharge instructions, follow up and referral plans. medication usage, Demonstrated understanding of instructions, follow-up care, medications, Prescriptions given X 1. 16:03 Patient left the ED. kc6 Signatures: Dispatcher [employer] EDIsaiah Xiong MD MD jr11 Regina Woods RN RN kc6
--- NOTE | 2023-01-25 15:41 | EDPHYS ---
Physician Documentation [facility] Name: Kandice Tee Age: 52 yrs Sex: Female : 1970 Arrival Date: 01/25/2023 Time: 14:12 Bed 12 Private MD: ED Physician Isaiah Baez HPI: 01/25 14:20 This 52 yrs old Black Female presents to ER via Unassigned with complaints of Headache. jr11 14:20 The patient complains of pain to the forehead, left temporal area, left episcopal, left jr11 zygomatic area and left cheek. The patient describes the headache as aching, intermittent. Onset: The symptoms/episode began/occurred 2 week(s) ago. Associated signs and symptoms: Pertinent negatives: altered mental status, dizziness, vision changes, weakness. Severity of symptoms: At its worst the pain was moderate, in the emergency department the pain is actually worse. Headache History: The patient has had previous headaches and this one is more severe than previous episodes. denies focal neuro complaints . Historical: - Allergies: 14:22 No Known Allergies; kc6 - PMHx: 14:22 Paranoid Schizophrenia; kc6 - PSHx: 14:22 None; kc6 - Immunization history:: Client reports receiving the 2nd dose of the Covid vaccine, Flu vaccine is up to date. - Social history:: Smoking status: Patient reports the use of cigarette tobacco products, smokes one-half pack cigarettes per day. ROS: 14:23 All other systems are negative. jr11 Exam: 14:23 Constitutional: This is a well developed, well nourished patient who is awake, alert, jr11 and in no acute distress. Head/Face: Normocephalic, atraumatic. ENT: Nares patent. No nasal discharge, no septal abnormalities noted. Oropharynx with no redness, swelling, or masses, exudates, or evidence of obstruction, uvula midline. Mucous membranes moist. Neck: Trachea midline, no thyromegaly or masses palpated, and no cervical lymphadenopathy. Supple, full range of motion without nuchal rigidity, or vertebral point tenderness. No Meningismus. Chest/axilla: Normal chest wall appearance and motion. Nontender with no deformity. No lesions are appreciated. Cardiovascular: Regular rate and rhythm with a normal S1 and S2. No gallops, murmurs, or rubs. Normal PMI, no JVD. No pulse deficits. Respiratory: Lungs have equal breath sounds bilaterally, clear to auscultation and percussion. No rales, rhonchi or wheezes noted. No increased work of breathing, no retractions or nasal flaring. Abdomen/GI: Soft, non-tender, with normal bowel sounds. No distension or tympany. No guarding or rebound. No evidence of tenderness throughout. Back: No spinal tenderness. No costovertebral tenderness. Full range of motion. Skin: Warm, dry with normal turgor. Normal color with no rashes, no lesions, and no evidence of cellulitis. MS/ Extremity: Pulses equal, no cyanosis. Neurovascular intact. Full, normal range of motion. Neuro: Awake and alert, GCS 15, oriented to person, place, time, and situation. No gross motor or sensory deficits. Vital Signs: 14:21 BP 118 / 71; Pulse 89; Resp 18 S; Temp 98.9(O); Pulse Ox 98% on R/A; Weight 77.11 kg kc6 (R); Height 5 ft. 7 in. (R); Pain 10/10; 14:21 Body Mass Index 26.63 (77.11 kg, 170.18 cm) kc6 14:21 Pain Scale: Adult kc6 MDM: 14:17 Patient medically screened. [facility] [place] 15:40 Differential diagnosis: cerebral vascular accident, intracerebral hemorrhage, migraine, jr11 sinusitis, tension headache, trigeminal neuralgia, vasomotor headache. Data reviewed: vital signs, nurses notes. ED course: Patient feeling significantly better, CT head read by me, no bleed no concern for stroke. Patient feels comfortable going home, headache nearly resolved. At this point, through shared decision making, no indication for a lumbar puncture. Denies severe headache denies thunderclap.. 01/25 14:22 Order name: Strep [facility] [place] 01/25 14:52 Order name: Throat Culture [facility] 01/25 14:18 Order name: CT Head Brain wo Cont; Complete Time: 15:39 11 01/25 14:18 Order name: PIV; Complete Time: 14:38 [facility] [place] Administered Medications: 14:38 Drug: NS 0.9% IV 1000 ml Route: IV; Rate: 125 ml/hr; Site: right antecubital; kc6 15:59 Follow up: IV Status: Completed infusion kc6 14:38 Drug: Acetaminophen PO 1000 mg Route: PO; kc6 15:59 Follow up: Response: No adverse reaction; Pain is decreased kc6 14:38 Drug: Ketorolac IVP 15 mg Route: IVP; Site: right antecubital; kc6 15:59 Follow up: Response: No adverse reaction; Pain is decreased kc6 14:38 Drug: Dexamethasone IVP 10 mg Route: IVP; Site: right antecubital; kc6 15:59 Follow up: Response: No adverse reaction kc6 14:38 Drug: metoCLOPramide IVP 10 mg Route: IVP; Site: right antecubital; kc6 15:59 Follow up: Response: No adverse reaction kc6 Disposition Summary: 01/25/23 15:40 Discharge Ordered Location: Home jr11 Condition: Stable jr11 Diagnosis - Headache jr11 Discharge Instructions: - Discharge Summary Sheet jr11 - General Headache Without Cause [facility] [place] Forms: - Medication Reconciliation Form jr11 - Thank You Letter jr11 - Antibiotic Education 11 - Prescription Opioid Use [facility] [place] - [email or web address] jr11 Prescriptions: - ketorolac 10 mg Oral tablet - take 1 tablet by ORAL route every 8 hours for 5 days as needed for pain; 15 jr11 tablet; Refills: 0, Product Selection Permitted Signatures: Dispatcher [employer] Isaiah Casillas MD MD jr11 Regina Woods RN RN kc6
[2023-01-25 16:20] VITALS: BP 118/71; TEMP 98.9; O2SAT 98
== END 2023-01-25 16:03 | disposition home or self-care (01) ==
LOC: ER 14:12
DX: R51.9 Headache, unspecified (principal); F17.210 Nicotine dependence, cigarettes, uncomplicated
CPT/HCPCS: 96361; 87070; 87081; 70450; 96375; 96374; 99284; J2765; J1100; J7030